=== PATIENT | male | born 1970 | race Caucasian/White ===

== ENCOUNTER 2022-12-20 16:09 | Outpatient (OUT) | payer OTHER, SELFPAY ==
[2022-12-20 16:46] LABS: Basophils Absolute Auto 0.1 10^3/uL (0.0-0.1); Basophils Percent Auto 0.6 % (0.2-2.0); Eosinophils Absolute Auto 0.1 10^3/uL (0.0-0.7); Eosinophils Percent Auto 0.6 % (0.9-7.0); Hematocrit 48.8 % (42.0-54.0); Hemoglobin 16.4 g/dL (14.0-18.0); Immature Granulocytes Abs Auto 0.03 10^3/uL (0.00-0.03); Immature Granulocytes Pct Auto 0.3 % (0.0-0.5); Lymphocytes Absolute Auto 2.4 10^3/uL (1.2-3.8); Lymphocytes Percent Auto 25.5 % (20.5-60.0); Mean Corpuscular HGB Conc 33.6 g/dL (29.9-35.2); Mean Corpuscular Hemoglobin 31.2 pg (25.9-34.0); Mean Platelet Volume 11.5 fL (9.5-13.5); Monocytes Absolute Auto 0.7 10^3/uL (0.3-0.8); Monocytes Percent Auto 7.7 % (1.7-12.0); Neutrophils Absolute Auto 6.2 10^3/uL (1.4-6.5); Neutrophils Percent Auto 65.3 % (43.0-75.0); Platelet Count 299 10^3/uL (150-450); Red Blood Count 5.25 10^6/uL (4.70-6.10); Red Cell Distribution Width 13.2 % (11.0-15.0); White Blood Count 9.6 10^3/uL (4.0-11.0)
[2022-12-20 16:47] LABS: Erythrocyte Sedimentation Rate 14 mm/hr (<=20)
[2022-12-20 18:26] LABS: Uric Acid 7.6 mg/dL (3.5-7.2)
[2022-12-20 18:28] LABS: C Reactive Protein <0.2 mg/dL (<=1.0)
== END 2022-12-20 16:10 | disposition home or self-care (01) ==
LOC: LAB 16:12
PROVIDERS: PCP Family Medicine; Visit Provider Family Medicine
DX: M70.52 Other bursitis of knee, left knee (principal)
CPT/HCPCS: 36415; 84550; 85025; 85652; 86140; 87040

== ENCOUNTER 2023-03-02 07:38 | Outpatient (OUT) | payer OTHER, SELFPAY ==
--- NOTE | 2023-03-02 07:45 | MR_ITS ---
The [address] [address] Patient Name: ABELINO PATEL MRN: [id number] date: 1970 Sex: M Assigned Patient Location: [facility] Current Patient Location: [facility] Accession/Order Number: [id number] Exam Date: 03/02/2023 08:00 Report Date: 03/02/2023 10:13 At the request of: MARIA L Mccloud APLING Procedure: MR knee RT wo con EXAM: MR knee RT wo con HISTORY: Internal Derangement Of Right Knee M23.91 right knee pain. Prior meniscal surgery. COMPARISON: None. TECHNIQUE: Multi planar, multisequence MR imaging of the right knee without contrast. Findings: Menisci: There is volume loss involving the posterior horn and a portion of the body of the lateral meniscus likely relating to prior meniscectomy. Otherwise, the menisci are intact. Cruciate ligaments: The anterior and posterior cruciate ligaments are intact. Collateral ligaments: The medial collateral ligament and lateral collateral complex are intact. Patellofemoral: The extensor mechanism is intact. Small joint effusion. Mild lateral patellar tilt. Small region of patchy bone marrow edema within the patella. No full-thickness patellofemoral compartments cartilage defects. Other bones and cartilage: No acute fracture or malalignment. No full-thickness femoral tibial compartment cartilage defect. Miscellaneous: No Mcdonald's cyst. There is focal edema within the superior lateral aspect of Hoffa's fat pad. MR/MR knee RT wo con IMPRESSION: 1. Patchy nonspecific mild bone marrow edema within the patella. 2. Focal edema within the superior lateral aspect of Hoffa's fat pad can be seen with patellar tendon lateral femoral condyle friction syndrome. 3. Prior lateral meniscectomy. Electronically authenticated by: SHIKHA EDGE Date: 03/02/2023 10:13
--- NOTE | 2023-03-02 07:57 | XR_ITS ---
[address] [address] Patient Name: ABELINO PATEL MRN: [id number] date: 1970 Sex: M Assigned Patient Location: [facility] Current Patient Location: [facility] Accession/Order Number: [id number] Exam Date: 03/02/2023 07:50 Report Date: 03/02/2023 08:08 At the request of: MARIA L ZAMBRANO Procedure: XR foreign body eye EXAMINATION: XR foreign body eye HISTORY: Foreign Body Eye COMPARISON: No relevant comparison available. FINDINGS: ORBITS: Negative for a metallic foreign body. OTHER: Negative. XR/XR foreign body eye IMPRESSION: No radiopaque foreign body in the orbits Electronically authenticated by: DEBORAH ORR Date: 03/02/2023 08:08
== END 2023-03-02 07:39 | disposition home or self-care (01) ==
LOC: RAD 07:38
PROVIDERS: PCP Family Medicine; Visit Provider Nurse Practitioner Family
DX: M23.91 Unspecified internal derangement of right knee (principal)
CPT/HCPCS: 70030; 73721

== ENCOUNTER 2024-05-10 10:07 | Outpatient (OUT) | payer OTHER, SELFPAY ==
--- NOTE | 2024-05-10 10:12 | US_ITS ---
The [address] [address] Patient Name: ABELINO PATEL MRN: [id number] date: 1970 Sex: M Assigned Patient Location: [facility] Current Patient Location: [facility] Accession/Order Number: [id number] Exam Date: 05/10/2024 10:20 Report Date: 05/10/2024 11:19 At the request of: RASHARD HICKMAN Procedure: US scrotum doppler Ultrasound scrotum/testicle HISTORY: Testicular Pain Right TECHNIQUE: Dedicated ultrasound of the scrotum and testes performed. FINDINGS: Comparison: None. Both testicles demonstrate normal echotexture and echogenicity. Right testicle measures 5.2 x 3.5 x 3.0 cm. The left testicle measures 5.4 x 3.0 x 2.8 cm. There is symmetrical color flow and Dopplerable arterial and venous waveforms in both testicles. There is no testicular mass. Right epididymal head measures 0.9 cm and is the body is diffusely thickened and hypervascular. The left epididymal head measures 1.1 cm. Left epididymis demonstrates normal color flow. Small bilateral hydroceles. There is no varicocele. US/US scrotum doppler IMPRESSION: 1. Acute right epididymitis. No associated right orchitis at this time. Recommend clinical follow-up to resolution. 2. Negative for testicular torsion or testicular mass. 3. Small bilateral hydroceles. 4. Negative for varicocele. Electronically authenticated by: GABRIELE FERRARA Date: 05/10/2024 11:19
== END 2024-05-10 10:08 | disposition home or self-care (01) ==
LOC: RAD 10:09
PROVIDERS: PCP Family Medicine; Visit Provider Family Medicine
DX: N50.811 Right testicular pain (principal); N45.1 Epididymitis; N43.2 Other hydrocele
CPT/HCPCS: 76870; 93976

== ENCOUNTER 2024-07-02 12:38 | Outpatient (OUT) | payer OTHER, SELFPAY ==
--- OUTSIDE RECORDS SUMMARY | 2024-07-02 12:46 | XMS_ITS | CCD ---
Author Organization [facility] Care Team Providers Care Division Order Technician Name Role Phone MARYLOU ., DR WETZEL Primary Care Unavailable JUVENALY ., DR WETZEL Consulting Unavailable HOY ., DR WETZEL Attending Unavailable HOY ., DR WETZEL Admitting Unavailable ROSA, DR PASCUAL Friedman Consulting Unavailable HOY ., DR WETZEL Admitting Unavailable JUVENALY ., DR WETZEL Primary Care Unavailable HOY ., DR WETZEL Consulting Unavailable HOY ., DR WETZEL Attending Unavailable BRAVE, DR DEBORAH Ware Consulting Unavailable Marciano GLEZ Attending Unavailable Isak Hickman Referring Unavailable Allergies Allergy Classification Reported Allergen(s) Allergy Type Date of Onset Reaction(s) Facility (1 source) No Known Medication Allergies; Translations: [No Known Medication Allergies] Propensity to adverse reactions (disorder) [facility] Repository Problems Problem Classification Problem Date Documented Da te Episodic/Chronic Other lower respiratory disease (4 sources) Pleurodynia; Translations: [PLEURODYNIA] Onset: 08-26-2022 Episodic Results Test Name Value Interpretation Reference Range Facil ity CT CHEST WO CONon 08-26-2022 CT CHEST WO CON EXAMINATION: CT CHEST WO CON HISTORY: Rib pain ; lateral rib pain bilaterally; no known injury COMPARISON: No relevant comparison available. TECHNIQUE: Axial, Coronal, and Sagittal images were created without the administration of IV contrast material. Dose reduction techniques were achieved by using automated exposure control and/or adjustment of mA and/or kV according to patient size and/or use of iterative reconstruction technique. FINDINGS: LUNGS: A few areas of thin pleural scarring. No suspicious nodules, infiltrates, or significant chronic interstitial changes. PLEURA: No mass, effusion, or pneumothorax. VASCULATURE: No abnormality. LAURIE: No mass or adenopathy. MEDIASTINUM: No mass or adenopathy. CARDIAC: No enlargement or pericardial thickening. AORTA: No aneurysm or dissection. CHEST WALL: No mass or axillary adenopathy. BONES: No bone lesion or fracture. LIMITED ABDOMEN: No suspicious findings. Limited images of the upper abdomen. OTHER: Negative. IMPRESSION: 1. No abnormal or suspicious findings to account for patient's symptoms. Electronically authenticated by: PASCUAL LEE Date: 2022-08-26 13:48 Normal [facility] XR RIBS LT PA Skyler 3 XR RIBS LT PA CH EXAMINATION: XR RIBS LT PA CH HISTORY: Pleuritic pain COMPARISON: No relevant comparison available. FINDINGS: LUNGS: No significant pulmonary parenchymal abnormalities. PLEURA: No pneumothorax, effusion, or pleural thickening. MEDIASTINUM: No visible mass or adenopathy. CARDIAC: No cardiomegaly or cardiac silhouette abnormality. RIBS: No acute rib fracture OTHER: Negative. IMPRESSION: Clear lungs No acute fracture Electronically authenticated by: DEBORAH ORR Date: 2022-07-20 07:43 Normal [facility] A1C with Estimated Average G luon 02-28-2021 Glucose [Mass/Vol] 108 mg/dL Normal [facility] Comment on above: Result Comment: PERF ORMED BY: [place] [address] PATHOLOGIST DEPUTY PROGRAM MANAGER OANH TOLBERT M.D. Performed By: #### A 1C WTH eA, LIPID, URIC, CMP, TEST, PSAS, CBC #### [address] #### INSULIN #### [facility] , HbA1c (Bld) [Mass fraction] 5.4 % Normal 4.3-5.6 [facility] Comment on above: Result Comment: Incr eased risk for diabetes: 5.7 - 6.4 diabetes: >6.4 glycemic control for adults with diabetes: <7.0 Performed By: #### A 1C WTH eA, LIPID, URIC, CMP, TEST, PSAS, CBC #### [facility] [address] [place] [address] #### INSULIN #### [facility] , Complete Blood Count Auto Di ffon 02-28-2021 Basophils (Bld) [#/Vol] 0.1 10*3/uL Normal 0.0-0.2 [facility] Comment on above: Result Comment: PERF ORMED BY: [place] [address] PATHOLOGIST DEPUTY PROGRAM MANAGER OANH TOLBERT M.D. Performed By: #### A 1C WTH eA, LIPID, URIC, CMP, TEST, PSAS, CBC #### [address] #### INSULIN #### [facility] , Basophils/100 WBC (Bld) 0.9 % Normal . [facility] Comment on above: Performed By: #### A 1C WTH eA, LIPID, URIC, CMP, TEST, PSAS, CBC #### [address] #### INSULIN #### [facility] , Eosinophils (Bld) [#/Vol] 0.1 10*3/uL Normal 0.0-0.45 [facility] Comment on above: Performed By: #### A 1C WTH eA, LIPID, URIC, CMP, TEST, PSAS, CBC #### [address] #### INSULIN #### [facility] , Eosinophils/100 WBC (Bld) 2.0 % Normal . [facility] Comment on above: Performed By: #### A 1C WTH eA, LIPID, URIC, CMP, TEST, PSAS, CBC #### [place] [address] [place] #### INSULIN #### [facility] , Erythrocyte distribution width (RBC) [Ratio] 13.5 % Normal 12.0-14.8 [facility] Comment on above: Performed By: #### A 1C WTH eA, LIPID, URIC, CMP, TEST, PSAS, CBC #### [address] #### INSULIN #### [facility] , Hematocrit (Bld) [Volume fraction] 44.8 % Normal 38.8-50.0 [facility] Comment on above: Performed By: #### A 1C WTH eA, LIPID, URIC, CMP, TEST, PSAS, CBC #### [facility] [address] [place] [address] #### INSULIN #### [facility] , Hemoglobin (Bld) [Mass/Vol] 15.3 g/dL Normal 13.0-17.0 [facility] Comment on above: Performed By: #### A 1C WTH eA, LIPID, URIC, CMP, TEST, PSAS, CBC #### [facility] [address] [place] [address] #### INSULIN #### [facility] , Lymphocytes (Bld) [#/Vol] 1.6 10*3/uL Normal 1.00-4.8 [facility] Comment on above: Performed By: #### A 1C WTH eA, LIPID, URIC, CMP, TEST, PSAS, CBC #### [address] #### INSULIN #### [facility] , Lymphocytes/100 WBC (Bld) 27.5 % Normal . [facility] Comment on above: Performed By: #### A 1C WTH eA, LIPID, URIC, CMP, TEST, PSAS, CBC #### [facility] [address] [place] [address] [place] #### INSULIN #### [facility] , MCH (RBC) [Entitic mass] 31.5 pg Normal 27.5-35.2 [facility] Comment on above: Performed By: #### A 1C WTH eA, LIPID, URIC, CMP, TEST, PSAS, CBC #### [facility] [address] [place] [address] [place] #### INSULIN #### [facility] , MCV (RBC) [Entitic vol] 92.1 fL Normal 83.5-101 [facility] Comment on above: Performed By: #### A 1C WTH eA, LIPID, URIC, CMP, TEST, PSAS, CBC #### [place] [address] [place] #### INSULIN #### [facility] , Mean Corpuscular HGB Conc 34.2 g/dL Normal 32.5-35.6 [facility] Comment on above: Performed By: #### A 1C WTH eA, LIPID, URIC, CMP, TEST, PSAS, CBC #### [place] [address] [place] #### INSULIN #### [facility] , Monocytes (Bld) [#/Vol] 0.5 10*3/uL Normal 0.0-0.8 [facility] Comment on above: Performed By: #### A 1C WTH eA, LIPID, URIC, CMP, TEST, PSAS, CBC #### [place] [address] [place] #### INSULIN #### [facility] , Monocytes/100 WBC (Bld) 8.0 % Normal . [facility] Comment on above: Performed By: #### A 1C WTH eA, LIPID, URIC, CMP, TEST, PSAS, CBC #### [place] [address] [place] #### INSULIN #### [facility] , Neutrophils (Bld) [#/Vol] 3.7 10*3/uL Normal 1.8-7.7 [facility] Comment on above: Performed By: #### A 1C WTH eA, LIPID, URIC, CMP, TEST, PSAS, CBC #### [facility] [address] [place] [address] [place] #### INSULIN #### [facility] , Neutrophils/100 WBC (Bld) 61.6 % Normal . [facility] Comment on above: Performed By: #### A 1C WTH eA, LIPID, URIC, CMP, TEST, PSAS, CBC #### [address] [place] [address] [place] #### INSULIN #### [facility] , Nucleated RBC/100 WBC (Bld) [Ratio] 0.0 % Normal 0-0.5 [facility] Comment on above: Performed By: #### A 1C WTH eA, LIPID, URIC, CMP, TEST, PSAS, CBC #### [facility] [address] [place] [address] [place] #### INSULIN #### [facility] , Platelet mean volume (Bld) [Entitic vol] 9.6 fL Normal 6.6-10.1 [facility] Comment on above: Performed By: #### A 1C WTH eA, LIPID, URIC, CMP, TEST, PSAS, CBC #### [address] #### INSULIN #### [facility] , Platelets (Bld) [#/Vol] 242 10*3/uL Normal 150-450 [facility] Comment on above: Performed By: #### A 1C WTH eA, LIPID, URIC, CMP, TEST, PSAS, CBC #### [place] [address] [place] #### INSULIN #### [facility] , RBC (Bld) [#/Vol] 4.87 10*6/uL Normal 3.90-5.60 [facility] Comment on above: Performed By: #### A 1C WTH eA, LIPID, URIC, CMP, TEST, PSAS, CBC #### [place] [address] [place] #### INSULIN #### [facility] , WBC (Bld) [#/Vol] 6.0 10*3/uL Normal 4.5-11.0 [facility] Comment on above: Performed By: #### A 1C WTH eA, LIPID, URIC, CMP, TEST, PSAS, CBC #### [place] [address] [place] #### INSULIN #### [facility] , Comprehensive Metabolic Pane france 02-28-2021 Albumin [Mass/Vol] 4.4 g/dL Normal 3.2-5.5 [facility] Comment on above: Performed By: #### A 1C WTH eA, LIPID, URIC, CMP, TEST, PSAS, CBC #### [facility] [address] [place] [address] [place] #### INSULIN #### [facility] , Albumin/Globulin [Mass ratio] 1.7 {ratio} Normal [facility] Comment on above: Performed By: #### A 1C WTH eA, LIPID, URIC, CMP, TEST, PSAS, CBC #### [facility] [address] [place] [address] #### INSULIN #### [facility] , ALP [Catalytic activity/Vol] 70 U/L Normal 32-92 [facility] Comment on above: Performed By: #### A 1C WTH eA, LIPID, URIC, CMP, TEST, PSAS, CBC #### [facility] [address] [place] [address] [place] #### INSULIN #### [facility] , ALT [Catalytic activity/Vol] 36 U/L Normal 10-60 [facility] Comment on above: Performed By: #### A 1C WTH eA, LIPID, URIC, CMP, TEST, PSAS, CBC #### [facility] [address] [place] [address] [place] #### INSULIN #### [facility] , AST [Catalytic activity/Vol] 26 U/L Normal 10-42 [facility] Comment on above: Performed By: #### A 1C WTH eA, LIPID, URIC, CMP, TEST, PSAS, CBC #### [facility] [address] [place] [address] [place] #### INSULIN #### [facility] , Bilirubin [Mass/Vol] 1.0 mg/dL Normal 0.3-1.2 [facility] Comment on above: Performed By: #### A 1C WTH eA, LIPID, URIC, CMP, TEST, PSAS, CBC #### [facility] [address] [place] [address] [place] #### INSULIN #### [facility] , Calcium [Mass/Vol] 9.6 mg/dL Normal 8.2-10.2 [facility] Comment on above: Performed By: #### A 1C WTH eA, LIPID, URIC, CMP, TEST, PSAS, CBC #### [facility] [address] [place] [address] [place] #### INSULIN #### [facility] , Chloride [Moles/Vol] 104 mmol/L Normal 95-114 [facility] Comment on above: Performed By: #### A 1C WTH eA, LIPID, URIC, CMP, TEST, PSAS, CBC #### [facility] [address] [place] [address] [place] #### INSULIN #### [facility] , CO2 [Moles/Vol] 26.3 mmol/L Normal 22.0-30.0 [facility] Comment on above: Performed By: #### A 1C WTH eA, LIPID, URIC, CMP, TEST, PSAS, CBC #### [facility] [address] [place] [address] [place] #### INSULIN #### [facility] , Creatinine [Mass/Vol] 1.29 mg/dL High 0.64-1.27 [facility] Comment on above: Performed By: #### A 1C WTH eA, LIPID, URIC, CMP, TEST, PSAS, CBC #### [facility] [address] [place] [address] [place] #### INSULIN #### [facility] , Estimated GFR ( Roberta > 60 Normal [facility] Comment on above: Result Comment: GFR estimated reference range: According to KDOQI guidelines, <60 ml/min/1.73m2 is sufficient to diagnose a patient with chronic kidney disease. Performed By: #### A 1C WTH eA, LIPID, URIC, CMP, TEST, PSAS, CBC #### [place] [address] [place] #### INSULIN #### [facility] , Estimated GFR (Non- Am 59 Normal [facility] Comment on above: Performed By: #### A 1C WTH eA, LIPID, URIC, CMP, TEST, PSAS, CBC #### [place] [address] [place] #### INSULIN #### [facility] , Globulin (S) [Mass/Vol] 2.6 g/dL Normal [facility] Comment on above: Performed By: #### A 1C WTH eA, LIPID, URIC, CMP, TEST, PSAS, CBC #### [place] [address] [place] #### INSULIN #### [facility] , Glucose [Mass/Vol] 100 mg/dL Normal 70-100 [facility] Comment on above: Result Comment: [facility] Glucose Reference Range is dependent on time and content of last meal. Glucose of more than 200 mg/dL in a nonstressed, ambulatory subject supports the diagnosis of Diabetes Mellitus. ADA recommended reference range Performed By: #### A 1C WTH eA, LIPID, URIC, CMP, TEST, PSAS, CBC #### [place] [address] [place] #### INSULIN #### [facility] , Potassium [Moles/Vol] 4.5 mmol/L Normal 3.5-5.1 [facility] Comment on above: Performed By: #### A 1C WTH eA, LIPID, URIC, CMP, TEST, PSAS, CBC #### [place] [address] [place] #### INSULIN #### [facility] , Protein [Mass/Vol] 7.0 g/dL Normal 6.1-7.9 [facility] Comment on above: Performed By: #### A 1C WTH eA, LIPID, URIC, CMP, TEST, PSAS, CBC #### [facility] [address] [place] [address] #### INSULIN #### [facility] , Sodium [Moles/Vol] 138 mmol/L Normal 136-146 [facility] Comment on above: Performed By: #### A 1C WTH eA, LIPID, URIC, CMP, TEST, PSAS, CBC #### [facility] [address] [place] [address] #### INSULIN #### [facility] , Urea nitrogen [Mass/Vol] 9 mg/dL Normal 9-23 [facility] Comment on above: Performed By: #### A 1C WTH eA, LIPID, URIC, CMP, TEST, PSAS, CBC #### [facility] [address] [place] [address] #### INSULIN #### [facility] , Insulinon 02-28-2021 Insulin 14.2 u[iU]/mL Normal 2.6-24.9 [facility] Comment on above: Result Comment: Perf ormed at: - [facility] [address] [id number] Compressor Mechanic: Tung Friedman PhD, Phone: [phone] PERFORMED BY: [place] [address] PATHOLOGIST DEPUTY PROGRAM MANAGER OANH TOLBERT M.D. Performed By: #### A 1C WTH eA, LIPID, URIC, CMP, TEST, PSAS, CBC #### [facility] [address] [place] [address] [place] #### INSULIN #### [facility] , Lipid Panelon 02-28-2021 Cholesterol [Mass/Vol] 195 mg/dL Normal 140-200 [facility] Comment on above: Result Comment: Chol less than 200 mg/dl low risk Chol 201-239 mg/dl borderline risk Chol 240 mg/dl and greater high risk Performed By: #### A 1C WTH eA, LIPID, URIC, CMP, TEST, PSAS, CBC #### [facility] [address] [place] [address] #### INSULIN #### [facility] , Cholesterol in HDL [Mass/Vol] 38 mg/dL Normal 29-71 [facility] Comment on above: Result Comment: HDL CHOL ATP-III CLASSIFICATION Cardiovascular Risk HDL > or equal to 60 mg/dL LOW HDL < 40 mg/dL HIGH Performed By: #### A 1C WTH eA, LIPID, URIC, CMP, TEST, PSAS, CBC #### [facility] [address] [place] [address] #### INSULIN #### [facility] , Cholesterol.total/Ch olesterol in HDL [Mass ratio] 5.1 {ratio} Normal <5.0 [facility] Comment on above: Result Comment: PERF ORMED BY: [place] [address] PATHOLOGIST DEPUTY PROGRAM MANAGER OANH TOLBERT M.D. Performed By: #### A 1C WTH eA, LIPID, URIC, CMP, TEST, PSAS, CBC #### [facility] [address] [place] [address] #### INSULIN #### [facility] , LDL Cholesterol,Calculat ed 138 mg/dL High 0-100 [facility] Comment on above: Result Comment: LDL ATP III CLASSIFICATION LDL less than 100 mg/dL Optimal LDL 100-129 mg/dL Near or above optimal LDL 130-159 mg/dL Borderline high LDL 160-189 mg/dL High LDL greater than 189 mg/dL Very high Performed By: #### A 1C WTH eA, LIPID, URIC, CMP, TEST, PSAS, CBC #### [address] #### INSULIN #### [facility] , Triglyceride w/Reflex 96 mg/dL Normal 35-149 [facility] Comment on above: Result Comment: TRIG ATP III CLASSIFICATION TRIG less than 150 mg/dL Normal TRIG 150-199 mg/dL Borderline high TRIG 200-500 mg/dL High TRIG greater than 500 mg/dL Very high Standard traceable to the Center for Disease Conrtrol and Prevention (CDC) test method. Performed By: #### A 1C WTH eA, LIPID, URIC, CMP, TEST, PSAS, CBC #### [place] [address] [place] #### INSULIN #### [facility] , VLDL CHOLESTEROL 19 mg/dL Normal [facility] Comment on above: Performed By: #### A 1C WTH eA, LIPID, URIC, CMP, TEST, PSAS, CBC #### [facility] [address] [place] [address] [place] #### INSULIN #### [facility] , PSA Screen (Yearly Only)on 0 02-28-2021 PSA Screen (Yearly Only) 1.120 ng/mL Normal 0.000-4.000 [facility] Comment on above: Order Comment: Is pa tient <50 yrs? Medicare does not pay <50.: N What is the date of the last PSA Screen?: U OR...The date Patient is eligible for PSA Screen?: U Is Medicare the insurance?: U Did you verify eligibility (Dx Time) check TestViewGp: YES TO ALL Result Comment: PERF ORMED BY: [place] [address] PATHOLOGIST DEPUTY PROGRAM MANAGER OANH TOLBERT M.D. Performed By: #### A 1C WTH eA, LIPID, URIC, CMP, TEST, PSAS, CBC #### [place] [address] [place] #### INSULIN #### [facility] , Testosteroneon 02-28-2021 Testosterone 4.60 ng/mL Normal 1.75-7.81 [facility] Comment on above: Result Comment: PERF ORMED BY: [place] [address] PATHOLOGIST DEPUTY PROGRAM MANAGER OANH TOLBERT M.D. Performed By: #### A 1C WTH eA, LIPID, URIC, CMP, TEST, PSAS, CBC #### [facility] [address] [place] [address] [place] #### INSULIN #### [facility] , Uric Acidon 02-28-2021 Urate [Mass/Vol] 8.7 mg/dL High 2.6-7.2 [facility] Comment on above: Performed By: #### A 1C WTH eA, LIPID, URIC, CMP, TEST, PSAS, CBC #### [facility] [address] [place] [address] [place] #### INSULIN #### [facility] , Encounters Encounter Date Encounter Type Care Provider Facility Start: 07-02-2024 ambulatory Marciano Yusuf ty:[facility] Start: 06-21-2024 ambulatory Marciano GLEZ Facility :[facility] Start: 08-26-2022 End: 08-27-[address] ISAK HICKMAN . Facility: Start: 07-19-2022 End: 07-20-[address] ISAK HICKMAN . Facility:[facility] Payers Date Payer Category Payer Unknown [id number] 2.16.84 [id number] 1970 Unknown [id number] 2.16.84 [id number] 1970 Unknown [id number] [id number] [id number] 1959 Unknown [id number] Summary Purpose Family History No Family History Records FoundNo Family History Records FoundNo Family History Records Found Advance Directives No Advanced Directives Records FoundNo Advanced Directives Records FoundNo Advanced Directives Records Found Additional Source Comments (unrecognized sect ion and content) No Status Records FoundNo Status Records FoundNo Status Records Found INFORMATION SOURCE (unrecogn ized section and content) DATE CREATED AUTHOR 06/30/2021 [facility] DATE CREATED AUTHOR AUTHOR'S ORGANIZ ATION 11/12/2022 [facility] DATE CREATED AUTHOR AUTHOR'S ORGANIZ ATION 06/29/2024 [facility] FOR RECORDS PERTAINING TO PATIENTS WHO ARE OR HAVE BEEN ENROLLED IN A CHEMICAL DEPENDENCY/SUBSTANCEABUSE PROGRAM, SOME INFORMATION MAY BE OMITTED. This clinical summary was aggregated from multiple sources. Caution should be exercised in using it in the provision of clinical care. This summary normalizes information from multiple sources, and as a consequence, information in this document may materially change the coding, format and clinical context of patient data. In addition, data may be omitted in some cases. CLINICAL DECISIONS SHOULD BE BASED ON THE PRIMARY CLINICAL RECORDS. [employer] [facility]. provides no warranty or guarantee of the accuracy or completeness of information in this document.
[2024-07-02 14:17] LABS: Prostate Specific Antigen Dx 2.33 ng/mL (<=4.00)
== END 2024-07-02 12:39 | disposition home or self-care (01) ==
LOC: LAB 12:39
PROVIDERS: PCP Family Medicine; Visit Provider Urology
DX: Z12.5 Encounter for screening for malignant neoplasm of prostate (principal)
CPT/HCPCS: 36415; 84153

== ENCOUNTER 2024-10-10 11:00 | Outpatient (OUT) | payer OTHER, SELFPAY ==
[2024-10-10 11:25] LABS: Basophils Absolute Auto 0.1 10^3/uL (0.0-0.1); Basophils Percent Auto 0.8 % (0.2-2.0); Eosinophils Absolute Auto 0.1 10^3/uL (0.0-0.7); Eosinophils Percent Auto 1.1 % (0.9-7.0); Hematocrit 44.2 % (42.0-54.0); Hemoglobin 14.8 g/dL (14.0-18.0); Immature Granulocytes Abs Auto 0.01 10^3/uL (0.00-0.03); Immature Granulocytes Pct Auto 0.2 % (0.0-0.5); Lymphocytes Absolute Auto 2.1 10^3/uL (1.2-3.8); Lymphocytes Percent Auto 34.3 % (20.5-60.0); Mean Corpuscular HGB Conc 33.5 g/dL (29.9-35.2); Mean Corpuscular Volume 92.7 fL (80.0-94.0); Mean Platelet Volume 11.6 fL (9.5-13.5); Monocytes Absolute Auto 0.5 10^3/uL (0.3-0.8); Monocytes Percent Auto 7.7 % (1.7-12.0); Neutrophils Absolute Auto 3.5 10^3/uL (1.4-6.5); Neutrophils Percent Auto 55.9 % (43.0-75.0); Platelet Count 242 10^3/uL (150-450); Red Blood Count 4.77 10^6/uL (4.70-6.10); Red Cell Distribution Width 12.8 % (11.0-15.0); White Blood Count 6.2 10^3/uL (4.0-11.0)
[2024-10-10 11:56] LABS: Estimated Average Glucose 114 mg/dL; Glycohemoglobin A1C 5.6 % (4.5-6.2)
[2024-10-10 12:12] LABS: Alanine Aminotransferase 28 U/L (16-63); Albumin Globulin Ratio 1.5; Albumin Level 4.3 g/dL (3.4-5.0); Alkaline Phosphatase 69 U/L (46-116); Anion Gap 7.9; Aspartate Amino Transferase 17 U/L (15-37); BUN Creatinine Ratio 6.9; Bilirubin Total 0.8 mg/dL (0.2-1.0); Calcium 9.2 mg/dL (8.5-10.1); Carbon Dioxide 30.3 mmol/L (21.0-32.0); Chloride 106 mmol/L (98-107); Chol HDL Ratio 3.4; Cholesterol 180 mg/dL (<=200); Estimated GFR (African America >60 (>=60 mL/min/1.73m^2); Estimated GFR (Non-African Ame 58 (>=60 mL/min/1.73m^2); Free T3 3.25 pg/mL (2.18-3.98); Globulin 2.9 g/dL; Glucose 94 mg/dL (74-106); HDL Cholesterol 53 mg/dL (40-60); LDL Cholesterol Calculated 109.8 mg/dL; Potassium 4.2 mmol/L (3.5-5.1); Sodium 140 mmol/L (136-145); Thyroid Stimulating Hormone 1.401 uIU/mL (0.358-3.740); Total Protein 7.2 g/dL (6.4-8.2); Triglycerides 86 mg/dL (<=150); VLDL CHOLESTEROL 17.2 mg/dL
[2024-10-11 04:09] LABS: PSA, Free 0.42 ng/mL; Prostate Specific Ag 2.8 ng/mL (0.0-4.0)
[2024-10-13 14:09] LABS: Free Testosterone(Direct) 8.5 pg/mL (7.2-24.0); Testosterone 744 ng/dL (264-916)
== END 2024-10-10 11:01 | disposition home or self-care (01) ==
LOC: LAB 11:02
PROVIDERS: PCP Family Medicine; Visit Provider Family Medicine
DX: N52.9 Male erectile dysfunction, unspecified (principal); E78.5 Hyperlipidemia, unspecified; R73.09 Other abnormal glucose; E03.9 Hypothyroidism, unspecified; I10 Essential (primary) hypertension; R53.83 Other fatigue; Z12.5 Encounter for screening for malignant neoplasm of prostate
CPT/HCPCS: 36415; 80053; 80061; 83036; 84153; 84154; 84402; 84403; 84436; 84443; 84481; 85025

== ENCOUNTER 2024-10-13 10:21 | Outpatient (OUT) | payer OTHER, SELFPAY ==
--- OUTSIDE RECORDS SUMMARY | 2024-10-13 10:24 | XMS_ITS | CCD ---
Author Organization [facility] Care Team Providers Care Shotblast Equipment Operator Name Role Phone MARYLOU Sanders, DR WETZEL Primary Care Unavailable MARYLOU ., DR WETZEL Consulting Unavailable MARYLOU ., DR WETZEL Attending Unavailable MARYLOU ., DR WETZEL Admitting Unavailable ROSA, DR PASCUAL Friedman Consulting Unavailable MARYLOU ., DR WETZEL Admitting Unavailable MARYLOU ., DR WETZEL Primary Care Unavailable JUVENALY ., DR WETZEL Consulting Unavailable MARYLOU ., DR WETZEL Attending Unavailable DOMINGA, DR DEBORAH Ware Consulting Unavailable Rashard Hair Primary Care Physician JOANNE BARTON Attending Unavailable JOANNE BARTON Attending Unavailable Marciano LO Attending Unavailable Rashard Hair Referring Unavailable Allergies Allergy Classification Reported Allergen(s) Allergy Type Date of Onset Reaction(s) Facility (1 source) No Known Medication Allergies; Translations: [No Known Medication Allergies] Propensity to adverse reactions (disorder) [facility] Repository Medications Current Medications Medication Drug Class(es) Dates Sig (Normalized) Sig (Original) Diclofenac 75mg Tab-DR (1 source) Start: 07-17-2021 take 1 tablet by mouth twice daily Diclofenac 75mg Tab-DR = 1 tab(s), Oral, BID, Refills(s) 0 Start Date: 07/17/21 Status: Ordered tiZANidine 4 mg oral tablet (1 source) Central alpha-2 Adrenergic Agonist Start: 07-17-2021 take 1 tablet by mouth twice daily as needed for muscle spasms tiZANidine 4 mg Tab 4 mg = 1 tab(s), Oral, BID, PRN Spasm, Refills(s) 0 Start Date: 07/17/21 Status: Ordered Problems Problem Classification Problem Date Documented Date Episodic/Chronic Abdominal pain (1 source) Left lower quadrant pain 07-25-2021 Episodic Allergic reactions (1 source) Vesicular eczema 07-17-2021 Episodic Esophageal disorders (1 source) Gastroesophageal reflux disease 07-17-2021 Chronic Inflammatory conditions of male genital organs (2 sources) Epididymitis; Translations: [Epididymitis] Onset: 07-02-2024 Episodic Other lower respiratory disease (4 sources) Pleurodynia; Translations: [PLEURODYNIA] Onset: 08-26-2022 Episodic Other male genital disorders (1 source) Hydrocele of testis; Translations: [Hydrocele, unspecified] Onset: 07-02-2024 Episodic Other male genital disorders (1 source) Disorder of male genital organ 07-02-2024 Episodic Other nutritional; endocrine; and metabolic disorders (1 source) Body mass index 30+ - obesity 07-21-2021 Chronic Other screening for suspected conditions (not mental disorders or infectious disease) (1 source) Encounter for screening for malignant neoplasm of prostate; Translations: [Screening for malignant neoplasm done] Onset: 07-02-2024 Episodic Residual codes; unclassified (1 source) Family history of cancer of colon 07-25-2021 Episodic Residual codes; unclassified (1 source) Tobacco user 07-21-2021 Episodic Spondylosis; intervertebral disc disorders; other back problems (1 source) Cervical disc disorder 07-17-2021 Chronic Unclassified (1 source) Patient encounter status 07-02-2024 Results Test Name Value Interpretation Reference Range [facility] Urology Office/Clinic Noteon 07-02-2024 Urology Office/Clinic Note Urology Office/Clinic Note Chief Complaint referal for testicular pain HPI Staff 54yr old male pt referred by Dr. Hair for right testicular pain. Pt had intermittent hot flashes in genital area, then he started experiencing right groin/testicle pain that moves upward during the day. He was started on Cipro 500mg q12hrs for 10 days. He did finish these with no problems US of scrotum completed 05/10/24 showed acute right epididymitis and small bilateral hydroceles. His Testicular pain is gone, just a warm sensation- Started a couple months ago Intermittent it happens a couple minutes burning lasts then it goes away History of Present Illness Tests reviewed: reviewed UA, referral records, scrotal US I have reviewed the previous health record information and history for this patient from external providers. I have reviewed and verified the staff HPI to be accurate for this encounter. Review of Systems PHQ Score Initial Depression Screen Score: 0 SCORE ROS - Provider Constitutional: denies weight loss, denies hot flashes. Eyes: denies eye problems. Gastrointestinal: denies nausea, denies vomiting. Cardiovascular: denies chest pain or angina. Integumentary: no dryness Musculoskeletal: denies musculoskeletal symptoms. ENMT: denies otolaryngeal symptoms. Respiratory: no shortness of breath. Heme/Lymph: denies easy bleeding tendency, denies easy bruising tendency. Psychiatric: no confusion, no anxiety. Genitourinary: See HPI. Physical Exam Vitals & Measurements T: 36.5 ???C(Oral) HR: 74(Peripheral) BP: 128/86 HT: 68 in HT: 173 cm WT: 104 kg WT: 229.28 lb BMI: 34.75 General Appearance: alert, no distress, well nourished, well developed male. Genitourinary: normal scrotum, normal testes, normal urethra, normal epididymis, normal vas deferens/spermatic cord. Assessment/Plan Abelino is a 54 yo male new pt referred by Dr. Hair for testicular pain. 1. Epididymitis (N45.1: Epididymitis) Scrotal US 05/10/24 [facility] - Right epididymal head measures 0.9cm and the body is diffusely thickened and hypervascular. Small bilateral hydroceles. No varicocele. PCP tx'd pt w/ Cipro 500mg bid x10 days in early May. Pt had recurrent pain so was given Azithromycin 500mg qd x3 days later that month. Completed both abx courses wo issues. Pain has since subsided. UA today negative for blood and infection. Reports experiencing a warm sensation in right testicle intermittently. Discussed possible etiologies. Advised pt infection can be related to incomplete emptying. Shares he voids every few hours during the day. Feels he empties. Good stream. Recommended timed voids q2-3hr during waking hours whether the urge to void is present or not. Also recommended increased water intake. -Timed voids -Increase water intake 2. Hydrocele (N43.3: Hydrocele, unspecified) Bilateral and small. Found on exam today. 3. Screening PSA (prostate specific antigen) (Z12.5: Encounter for screening for malignant neoplasm of prostate) PSA 02/28/21 - 1.12 Discussed PSA level and importance of monitoring. Has not had a more recent level. Recommended pt to update this. Pt agrees with plan. -Pt to complete PSA level. Will call pt with results. If wnl, pt to f/u prn. Follow-up With When Contact Information Marciano LO MD, URL Only if needed [facility] [address], [place] [address]- [phone] Additional Instructions: Patient Education Prostate Cancer Screening I, Stephanie Hayes, personally scribed for Dr. Lo on 07/02/2024 12:34:58. . Documentation recorded by the [email or web address], accurately reflects the services(s) I performed and decisions made by me. Authenticated by Dr. Lo on 07/02/2024 12:36:15. Problem List/Past Medical History Ongoing Abdominal pain, LLQ BMI 36.0-36.9,adult Cervical disc disease Dyshidrotic eczema Epididymitis Family history of colon cancer GERD (gastroesophageal reflux disease) Hydrocele Screening PSA (prostate specific antigen) Historical Tobacco user Procedure/Surgical History Partial meniscectomy of knee (2018), Colonoscopy (07/07/2016), Meniscectomy (2010), History of hernia repair, Vasectomy. Medications Diclofenac 75mg Tab-DR, 1 tab(s), Oral, BID tiZANidine 4 mg Tab, 4 mg= 1 tab(s), Oral, BID, PRN Allergies No Known Allergies No Known Medication Allergies Social History Alcohol Current. Beer. 1-2 times per week., 06/27/2024 Substance Abuse - Denies Substance Abuse, 07/21/2021 Never., 06/27/2024 Tobacco Former smoker, quit more than 30 days ago Tobacco Use:., 07/02/2024 Family History COPD: Father. Dementia: Mother. Metastatic cancer: Sister. Immunizations Vaccine Date Status Comments influenza virus vaccine, inactivated - Not Given Patient Refuses Lab Results Ambulatory Point of Care Results Bilirubin Urine Dipstick: Negative (07/02/24 11:35:00) Blood Urine Dipstick: Negative (more content not included)... Normal [facility] Comment on above: Result Comment: Elec tronically Signed By: Marciano LO MD\.br\Date and Time Signed: 07/02/24 12:36 EST\.br\Electronically Co-Signed By: Stephanie Hayes\.leah\Date and Time Co-Signed: 07/02/24 12:[address] CHEST WO CONon 08-26-2022 CT CHEST WO CON EXAMINATION: CT CHES T WO CON HISTORY: Rib pain ; lateral [...] by: PASCUAL LEE Date: 2022-08-26 13:[address] [facility] XR RIBS LT PA Skyler 3 [...] by: DEBORAH ORR Date: 2022-07-20 07:[address] [facility] A1C with Estimated Average G luon 02-28-2021 Glucose [Mass/Vol] 108 mg/dL Normal [facility] Comment on above: Result Comment: PERF ORMED BY: [facility] [address] [place] [address] PATHOLOGIST PLACEMENT COORDINATOR OANH TOLBERT M.D. Performed By: #### A 1C WTH eA, LIPID, URIC, CMP, TEST, PSAS, CBC #### [facility] [address] [place] [address] #### INSULIN #### [facility] , HbA1c (Bld) [Mass fraction] 5.4 % Normal 4.3-5.6 [facility] Comment on above: Result Comment: Incr eased risk for diabetes: 5.7 - 6.4 diabetes: >6.4 glycemic control for adults with diabetes: <7.0 Performed By: #### A 1C WTH eA, LIPID, URIC, CMP, TEST, PSAS, CBC #### [address] #### INSULIN #### [facility] , Complete Blood Count Auto Di ffon 02-28-2021 Basophils (Bld) [#/Vol] 0.1 10*3/uL Normal 0.0-0.2 [facility] Comment on above: Result Comment: PERF ORMED BY: [place] [address] PATHOLOGIST PLACEMENT COORDINATOR OANH TOLBERT M.D. Performed By: #### A 1C WTH eA, LIPID, URIC, CMP, TEST, PSAS, CBC #### [address] #### INSULIN #### [facility] , Basophils/100 WBC (Bld) 0.9 % Normal . [facility] Comment on above: Performed By: #### A 1C WTH eA, LIPID, URIC, CMP, TEST, PSAS, CBC #### [facility] [address] [place] [address] [place] #### INSULIN #### [facility] , Eosinophils (Bld) [#/Vol] 0.1 10*3/uL Normal 0.0-0.45 [facility] Comment on above: Performed By: #### A 1C WTH eA, LIPID, URIC, CMP, TEST, PSAS, CBC #### [place] [address] [place] #### INSULIN #### [facility] , Eosinophils/100 WBC (Bld) 2.0 % Normal . [facility] Comment on above: Performed By: #### A 1C WTH eA, LIPID, URIC, CMP, TEST, PSAS, CBC #### [facility] [address] [place] [address] [place] #### INSULIN #### [facility] , Erythrocyte distribution width (RBC) [Ratio] 13.5 % Normal 12.0-14.8 [facility] Comment on above: Performed By: #### A 1C WTH eA, LIPID, URIC, CMP, TEST, PSAS, CBC #### [address] #### INSULIN #### [facility] , Hematocrit (Bld) [Volume fraction] 44.8 % Normal 38.8-50.0 [facility] Comment on above: Performed By: #### A 1C WTH eA, LIPID, URIC, CMP, TEST, PSAS, CBC #### [place] [address] [place] #### INSULIN #### [facility] , Hemoglobin (Bld) [Mass/Vol] 15.3 g/dL Normal 13.0-17.0 [facility] Comment on above: Performed By: #### A 1C WTH eA, LIPID, URIC, CMP, TEST, PSAS, CBC #### [place] [address] [place] #### INSULIN #### [facility] , Lymphocytes (Bld) [#/Vol] 1.6 10*3/uL Normal 1.00-4.8 [facility] Comment on above: Performed By: #### A 1C WTH eA, LIPID, URIC, CMP, TEST, PSAS, CBC #### [place] [address] [place] #### INSULIN #### [facility] , Lymphocytes/100 WBC (Bld) 27.5 % Normal . [facility] Comment on above: Performed By: #### A 1C WTH eA, LIPID, URIC, CMP, TEST, PSAS, CBC #### [facility] [address] [place] [address] [place] #### INSULIN #### [facility] , MCH (RBC) [Entitic mass] 31.5 pg Normal 27.5-35.2 [facility] Comment on above: Performed By: #### A 1C WT eA, LIPID, URIC, CMP, TEST, PSAS, CBC #### [address] #### INSULIN #### [facility] , MCV (RBC) [Entitic vol] 92.1 fL Normal 83.5-101 [facility] Comment on above: Performed By: #### A 1C WTH eA, LIPID, URIC, CMP, TEST, PSAS, CBC #### [facility] [address] [place] [address] #### INSULIN #### [facility] , Mean Corpuscular HGB Conc 34.2 g/dL Normal 32.5-35.6 [facility] Comment on above: Performed By: #### A 1C WTH eA, LIPID, URIC, CMP, TEST, PSAS, CBC #### [facility] [address] [place] [address] [place] #### INSULIN #### [facility] , Monocytes (Bld) [#/Vol] 0.5 10*3/uL Normal 0.0-0.8 [facility] Comment on above: Performed By: #### A 1C WTH eA, LIPID, URIC, CMP, TEST, PSAS, CBC #### [facility] [address] [place] [address] #### INSULIN #### [facility] , Monocytes/100 WBC (Bld) 8.0 % Normal . [facility] Comment on above: Performed By: #### A 1C WT eA, LIPID, URIC, CMP, TEST, PSAS, CBC #### [facility] [address] [place] [address] [place] #### INSULIN #### [facility] , Neutrophils (Bld) [#/Vol] 3.7 10*3/uL Normal 1.8-7.7 [facility] Comment on above: Performed By: #### A 1C WTH eA, LIPID, URIC, CMP, TEST, PSAS, CBC #### [facility] [address] [place] [address] [place] #### INSULIN #### [facility] , Neutrophils/100 WBC (Bld) 61.6 % Normal . [facility] Comment on above: Performed By: #### A 1C WT eA, LIPID, URIC, CMP, TEST, PSAS, CBC #### [facility] [address] [place] [address] [place] #### INSULIN #### [facility] , Nucleated RBC/100 WBC (Bld) [Ratio] 0.0 % Normal 0-0.5 [facility] Comment on above: Performed By: #### A 1C WTH eA, LIPID, URIC, CMP, TEST, PSAS, CBC #### [facility] [address] [place] [address] [place] #### INSULIN #### [facility] , Platelet mean volume (Bld) [Entitic vol] 9.6 fL Normal 6.6-10.1 [facility] Comment on above: Performed By: #### A 1C WTH eA, LIPID, URIC, CMP, TEST, PSAS, CBC #### [facility] [address] [place] [address] [place] #### INSULIN #### [facility] , Platelets (Bld) [#/Vol] 242 10*3/uL Normal 150-450 [facility] Comment on above: Performed By: #### A 1C WTH eA, LIPID, URIC, CMP, TEST, PSAS, CBC #### [facility] [address] [place] [address] [place] #### INSULIN #### [facility] , RBC (Bld) [#/Vol] 4.87 10*6/uL Normal 3.90-5.60 [facility] Comment on above: Performed By: #### A 1C WTH eA, LIPID, URIC, CMP, TEST, PSAS, CBC #### [facility] [address] [place] [address] [place] #### INSULIN #### [facility] , WBC (Bld) [#/Vol] 6.0 10*3/uL Normal 4.5-11.0 [facility] Comment on above: Performed By: #### A 1C WTH eA, LIPID, URIC, CMP, TEST, PSAS, CBC #### [facility] [address] [place] [address] [place] #### INSULIN #### [facility] , Comprehensive Metabolic Pane france 02-28-2021 Albumin [Mass/Vol] 4.4 g/dL Normal 3.2-5.5 [facility] Comment on above: Performed By: #### A 1C WTH eA, LIPID, URIC, CMP, TEST, PSAS, CBC #### [facility] [address] [place] [address] [place] #### INSULIN #### [facility] , Albumin/Globulin [Mass ratio] 1.7 {ratio} Normal [facility] Comment on above: Performed By: #### A 1C WTH eA, LIPID, URIC, CMP, TEST, PSAS, CBC #### [facility] [address] [place] [address] [place] #### INSULIN #### [facility] , ALP [Catalytic activity/Vol] 70 U/L Normal 32-92 [facility] Comment on above: Performed By: #### A 1C WTH eA, LIPID, URIC, CMP, TEST, PSAS, CBC #### [facility] [address] [place] [address] [place] #### INSULIN #### [facility] , ALT [Catalytic activity/Vol] 36 U/L Normal 10-60 [facility] Comment on above: Performed By: #### A 1C WTH eA, LIPID, URIC, CMP, TEST, PSAS, CBC #### [facility] [address] [place] [address] [place] #### INSULIN #### [facility] , AST [Catalytic activity/Vol] 26 U/L Normal 10-42 [facility] Comment on above: Performed By: #### A 1C WTH eA, LIPID, URIC, CMP, TEST, PSAS, CBC #### [address] #### INSULIN #### [facility] , Bilirubin [Mass/Vol] 1.0 mg/dL Normal 0.3-1.2 [facility] Comment on above: Performed By: #### A 1C WTH eA, LIPID, URIC, CMP, TEST, PSAS, CBC #### [facility] [address] [place] [address] [place] #### INSULIN #### [facility] , Calcium [Mass/Vol] 9.6 mg/dL Normal 8.2-10.2 [facility] Comment on above: Performed By: #### A 1C WTH eA, LIPID, URIC, CMP, TEST, PSAS, CBC #### [facility] [address] [place] [address] [place] #### INSULIN #### [facility] , Chloride [Moles/Vol] 104 mmol/L Normal 95-114 [facility] Comment on above: Performed By: #### A 1C WTH eA, LIPID, URIC, CMP, TEST, PSAS, CBC #### [facility] [address] [place] [address] [place] #### INSULIN #### [facility] , CO2 [Moles/Vol] 26.3 mmol/L Normal 22.0-30.0 [facility] Comment on above: Performed By: #### A 1C WTH eA, LIPID, URIC, CMP, TEST, PSAS, CBC #### [facility] [address] [place] [address] [place] #### INSULIN #### [facility] , Creatinine [Mass/Vol] 1.29 mg/dL High 0.64-1.27 [facility] Comment on above: Performed By: #### A 1C WTH eA, LIPID, URIC, CMP, TEST, PSAS, CBC #### [facility] [address] [place] [address] [place] #### INSULIN #### [facility] , Estimated GFR ( Roberta > 60 Normal [facility] Comment on above: Result Comment: GFR estimated reference range: According to KDOQI guidelines, <60 ml/min/1.73m2 is sufficient to diagnose a patient with chronic kidney disease. Performed By: #### A 1C WTH eA, LIPID, URIC, CMP, TEST, PSAS, CBC #### [facility] [address] [place] [address] [place] #### INSULIN #### [facility] , Estimated GFR (Non- Am 59 Normal [facility] Comment on above: Performed By: #### A 1C WTH eA, LIPID, URIC, CMP, TEST, PSAS, CBC #### [facility] [address] [place] [address] [place] #### INSULIN #### [facility] , Globulin (S) [Mass/Vol] 2.6 g/dL Normal [facility] Comment on above: Performed By: #### A 1C WTH eA, LIPID, URIC, CMP, TEST, PSAS, CBC #### [facility] [address] [place] [address] [place] #### INSULIN #### [facility] , Glucose [Mass/Vol] 100 mg/dL Normal 70-100 [facility] Comment on above: Result Comment: Whitney Glucose Reference Range is dependent on time and content of last meal. Glucose of more than 200 mg/dL in a nonstressed, ambulatory subject supports the diagnosis of Diabetes Mellitus. ADA recommended reference range Performed By: #### A 1C WTH eA, LIPID, URIC, CMP, TEST, PSAS, CBC #### [address] #### INSULIN #### [facility] , Potassium [Moles/Vol] 4.5 mmol/L Normal 3.5-5.1 [facility] Comment on above: Performed By: #### A 1C WTH eA, LIPID, URIC, CMP, TEST, PSAS, CBC #### [address] #### INSULIN #### [facility] , Protein [Mass/Vol] 7.0 g/dL Normal 6.1-7.9 [facility] Comment on above: Performed By: #### A 1C WTH eA, LIPID, URIC, CMP, TEST, PSAS, CBC #### [place] [address] [place] #### INSULIN #### [facility] , Sodium [Moles/Vol] 138 mmol/L Normal 136-146 [facility] Comment on above: Performed By: #### A 1C WTH eA, LIPID, URIC, CMP, TEST, PSAS, CBC #### [place] [address] [place] #### INSULIN #### [facility] , Urea nitrogen [Mass/Vol] 9 mg/dL Normal 9-23 [facility] Comment on above: Performed By: #### A 1C WTH eA, LIPID, URIC, CMP, TEST, PSAS, CBC #### [place] [address] [place] #### INSULIN #### [facility] , Insulinon 02-28-2021 Insulin 14.2 u[iU]/mL Normal 2.6-24.9 [facility] Comment on above: Result Comment: Perf ormed at: - [facility] [address] [id number] Watch Assembly Instructor: Tung Friedman PhD, Phone: [phone] PERFORMED BY: [place] [address] PATHOLOGIST PLACEMENT COORDINATOR OANH TOLBERT M.D. Performed By: #### A 1C WTH eA, LIPID, URIC, CMP, TEST, PSAS, CBC #### [facility] [address] [place] [address] #### INSULIN #### [facility] , Lipid Panelon 02-28-2021 Cholesterol [Mass/Vol] 195 mg/dL Normal 140-200 [facility] Comment on above: Result Comment: Chol less than 200 mg/dl low risk Chol 201-239 mg/dl borderline risk Chol 240 mg/dl and greater high risk Performed By: #### A 1C WTH eA, LIPID, URIC, CMP, TEST, PSAS, CBC #### [facility] [address] [place] [address] #### INSULIN #### [facility] , Cholesterol in HDL [Mass/Vol] 38 mg/dL Normal 29-71 [facility] Comment on above: Result Comment: HDL CHOL ATP-III CLASSIFICATION Cardiovascular Risk HDL > or equal to 60 mg/dL LOW HDL < 40 mg/dL HIGH Performed By: #### A 1C WTH eA, LIPID, URIC, CMP, TEST, PSAS, CBC #### [facility] [address] [place] [address] [place] #### INSULIN #### [facility] , Cholesterol.total/Ch olesterol in HDL [Mass ratio] 5.1 {ratio} Normal <5.0 [facility] Comment on above: Result Comment: PERF ORMED BY: [place] [address] PATHOLOGIST PLACEMENT COORDINATOR OANH TOLBERT M.D. Performed By: #### A 1C WTH eA, LIPID, URIC, CMP, TEST, PSAS, CBC #### [facility] [address] [place] [address] [place] #### INSULIN #### [facility] , LDL Cholesterol,Calculat ed 138 mg/dL High 0-100 [facility] Comment on above: Result Comment: LDL ATP III CLASSIFICATION LDL less than 100 mg/dL Optimal LDL 100-129 mg/dL Near or above optimal LDL 130-159 mg/dL Borderline high LDL 160-189 mg/dL High LDL greater than 189 mg/dL Very high Performed By: #### A 1C WT eA, LIPID, URIC, CMP, TEST, PSAS, CBC #### [facility] [address] [place] [address] [place] #### INSULIN #### [facility] , Triglyceride w/Reflex 96 mg/dL Normal 35-149 [facility] Comment on above: Result Comment: TRIG ATP III CLASSIFICATION TRIG less than 150 mg/dL Normal TRIG 150-199 mg/dL Borderline high TRIG 200-500 mg/dL High TRIG greater than 500 mg/dL Very high Standard traceable to the Center for Disease Conrtrol and Prevention (CDC) test method. Performed By: #### A 1C WTH eA, LIPID, URIC, CMP, TEST, PSAS, CBC #### [place] [address] [place] #### INSULIN #### [facility] , VLDL CHOLESTEROL 19 mg/dL Normal [facility] Comment on above: Performed By: #### A 1C WTH eA, LIPID, URIC, CMP, TEST, PSAS, CBC #### [facility] [address] [place] [address] [place] #### INSULIN #### [facility] , PSA Screen (Yearly Only)on 0 02-28-2021 PSA Screen (Yearly Only) 1.120 ng/mL Normal 0.000-4.000 [facility] Comment on above: Order Comment: Is pa tient <50 yrs? Medicare does not pay <50.: N What is the date of the last PSA Screen?: U OR...The date Patient is eligible for PSA Screen?: U Is Medicare the insurance?: U Did you verify eligibility (Dx Time) check TestViewGp: YES TO ALL Result Comment: PERF ORMED BY: [place] [address] PATHOLOGIST PLACEMENT COORDINATOR OANH TOLBERT M.D. Performed By: #### A 1C WTH eA, LIPID, URIC, CMP, TEST, PSAS, CBC #### [facility] [address] [place] [address] #### INSULIN #### [facility] , Testosteroneon 02-28-2021 Testosterone 4.60 ng/mL Normal 1.75-7.81 [facility] Comment on above: Result Comment: PERF ORMED BY: [place] [address] PATHOLOGIST PLACEMENT COORDINATOR OANH TOLBERT M.D. Performed By: #### A 1C WTH eA, LIPID, URIC, CMP, TEST, PSAS, CBC #### [facility] [address] [place] [address] #### INSULIN #### [facility] , Uric Acidon 02-28-2021 Urate [Mass/Vol] 8.7 mg/dL High 2.6-7.2 [facility] Comment on above: Performed By: #### A 1C WTH eA, LIPID, URIC, CMP, TEST, PSAS, CBC #### [facility] [address] [place] [address] [place] #### INSULIN #### [facility] , Vital Signs Date Time Vital Sign Value Performing Clinician Mima gaona 07-02-2024 11:28-0500 Blood Pressure Location Marciano LO [facility] 07-02-2024 11:28-0500 Body temperature 97.7 [degF] Marciano LO [facility] [facility]2024 11:28-0500 Diastolic blood pressure 86 mm[Hg] Marciano LO [facility] 07-02-2024 11:28-0500 Heart rate 74 /min Marciano LO [facility] 07-02-2024 11:28-0500 Systolic blood pressure 128 mm[Hg] Marciano LO [facility] Encounters Encounter Date Encounter Type Care Provider Facility Start: 07-11-2025 ambulatory JOANNE Yusuf ty:[facility] Start: 07-05-2025 [facility] Start: 07-02-2024 End: 07-02-2024 ambulatory [facility] Start: 07-02-2024 End: 07-02-2024 Patient encounter procedure Marciano LO [facility] Start: 06-21-2024 ambulatory JOANNE BARTON Facility : [place] Start: 08-26-2022 End: 08-27-[address] RASHARD HAIR . Facility: Start: 07-19-2022 End: 07-20-[address] RAHSARD HAIR . Facility: Procedures Date Procedure Procedure Detail Performing Clinician Start: 06-06-2018 Partial meniscectomy of knee Marciano LO Comment on above: left Start: 07-07-2016 Colonoscopy Marciano LUZ Start: 06-06-2010 Chondrectomy of semi lunar cartilage of knee Marciano LO History of hernia repair Humera LO Vasectomy Marciano LO Immunizations Immunization Date Immunization Notes Care Provider Fa benjamín NEGATED: Highlighted row has not occurred!07-21-2021 influenza virus vaccine, unspecified formulation Marciano LO [facility] [place] Payers Date Payer Category Payer Unknown [id number] 1970 Unknown [id number] [id number] 1970 Unknown [id number] [id number] [id number] 1970 Unknown [id number] 2.16.8 [id number] 1970 Unknown [id number] 2.16.8 [id number] 1958 Unknown [id number] Social History Date Type Detail Facility Start: 07-02-2024 Tobacco smoking status Ex-smoker (fi nding) [facility] Sex Assigned At Male [facility] Functional Status Date Assessment Result Facility 07-02-2024 Functional Status N/A [facility] Hospital Discharge instructions 07-02-2024 Note Date & Type Note Facility 07-02-2024 Hospital Discharge instructions Patient Education 07/02/2024 12:31:26 Prostate Cancer Screening Prostate Cancer Screening Prostate cancer screening is testing that is done to check for the presence of prostate cancer in men. The prostate gland is a walnut-sized gland that is located below the bladder and in front of the rectum in males. The function of the prostate is to add fluid to semen during ejaculation. Prostate cancer is one of the most common types of cancer in men. Who should have prostate cancer screening? Screening recommendations vary based on age and other risk factors, as well as between the professional organizations who make the recommendations. In general, screening is recommended if: You are age 50 to 70 and have an average risk for prostate cancer. You should talk with your health care provider about your need for screening and how often screening should be done. Because most prostate cancers are slow growing and will not cause , screening in this age group is generally reserved for men who have a 10- to 15-year life expectancy. You are younger than age 50, and you have these risk factors: ?Having a father, brother, or uncle who has been diagnosed with prostate cancer. The risk is higher if your family member's cancer occurred at an early age or if you have multiple family members with prostate cancer at an early age. ?Being a male who is Black or is of Pb or sub-Saharan descent. In general, screening is not recommended if: You are younger than age 40. You are between the ages of 40 and 49 and you have no risk factors. You are 70 years of age or older. At this age, the risks that screening can cause are greater than the benefits that it may provide. If you are at high risk for prostate cancer, your health care provider may recommend that you have screenings more often or that you start screening at a younger age. How is screening for prostate cancer done? The recommended prostate cancer screening test is a blood test called the prostate-specific antigen (PSA) test. PSA is a protein that is made in the prostate. As you age, your prostate naturally produces more PSA. Abnormally high PSA levels may be caused by: Prostate cancer. An enlarged prostate that is not caused by cancer (benign prostatic hyperplasia, or BPH). This condition is very common in older men. A prostate gland infection (prostatitis) or urinary tract infection. Certain medicines such as male hormones (like testosterone) or other medicines that raise testosterone levels. A rectal exam may be done as part of prostate cancer screening to help provide information about the size of your prostate gland. When a rectal exam is performed, it should be done after the PSA level is drawn to avoid any effect on the results. Depending on the PSA results, you may need more tests, such as: A physical exam to check the size of your prostate gland, if not done as part of screening. Blood and imaging tests. A procedure to remove tissue samples from your prostate gland for testing (biopsy). This is the only way to know for certain if you have prostate cancer. What are the benefits of prostate cancer screening? Screening can help to identify cancer at an early stage, before symptoms start and when the cancer can be treated more easily. There is a small chance that screening may lower your risk of dying from prostate cancer. The chance is small because prostate cancer is a slow-growing cancer, and most men with prostate cancer from a different cause. What are the risks of prostate cancer screening? The main risk of prostate cancer screening is diagnosing and treating prostate cancer that would never have caused any symptoms or problems. This is called overdiagnosisand overtreatment. PSA screening cannot tell you if your PSA is high due to cancer or a different cause. A prostate biopsy is the only procedure to diagnose prostate cancer. Even the results of a biopsy may not tell you if your cancer needs to be treated. Slow-growing prostate cancer may not need any treatment other than monitoring, so diagnosing and treating it may cause unnecessary stress or other side effects. Questions to ask your health care provider When should I start prostate cancer screening? What is my risk for prostate cancer? How often do I need screening? What type of screening tests do I need? How do I get my test results? What do my results mean? Do I need treatment? Where to find more information The [place] [employer]: www.cancer.org [place] [employer] Association: www.auanet.org Contact a health care provider if: You have difficulty urinating. You have pain when you urinate or ejaculate. You have blood in your urine or semen. You have pain in your back or in the area of your prostate. Summary Prostate cancer is a common type of cancer in men. The prostate gland is located below the bladder and in front of the rectum. This gland adds fluid to semen during ejaculation. Prostate cancer screening may identify cancer at an early stage, when the cancer can be treated more easily and is less likely to have spread to other areas of the body. The prostate-specific antigen (PSA) test is the recommended screening test for prostate cancer, but it has associated risks. Discuss the risks and benefits of prostate cancer screening with your health care provider. If you are age 70 or older, the risks that screening can cause are greater than the benefits that it may provide. This information is not intended to replace advice given to you by your health care provider. Make sure you discuss any questions you have with your health care provider. Document Revised: 11/16/2021 Document Reviewed: 11/16/2021 [employer] Patient Education 2023 [employer]. Follow Up Care 06/22/2024 13:36:18 With:NEWTON GALVIN, Marciano Friedman, URL Address: [facility] [address] , [place] [address]- [phone] When: only if needed [facility] Evaluation + Plan note 07-02-2024 Note Date & Type Note Facility 07-02-2024 Evaluation + Plan note Diagnostic Tests PendingPSA Screen, Total 07/02/24 [facility] Clinical Note 07-02-2024 Note Date & Type Note Facility 07-02-2024 Note Patient Education Oncology Prostate Cancer Screening Prostate cancer screening is testing that is done to check for the presence of prostate cancer in men. The prostate gland is a walnut-sized gland that is located below the bladder and in front of the rectum in males. The function of the prostate is to add fluid to semen during ejaculation. Prostate cancer is one of the most common types of cancer in men. Who should have prostate cancer screening? Screening recommendations vary based on age and other risk factors, as well as between the professional organizations who make the recommendations. In general, screening is recommended if: ??? You are age 50 to 70 and have an average risk for prostate cancer. You should talk with your health care provider about your need for screening and how often screening should be done. Because most prostate cancers are slow growing and will not cause , screening in this age group is generally reserved for men who have a 10- to 15-year life expectancy. ??? You are younger than age 50, and you have these risk factors: ? Having a father, brother, or uncle who has been diagnosed with prostate cancer. The risk is higher if your family member's cancer occurred at an early age or if you have multiple family members with prostate cancer at an early age. ? Being a male who is Black or is of Pb or sub-Saharan descent. In general, screening is not recommended if: ??? You are younger than age 40. ??? You are between the ages of 40 and 49 and you have no risk factors. ??? You are 70 years of age or older. At this age, the risks that screening can cause are greater than the benefits that it may provide. If you are at high risk for prostate cancer, your health care provider may recommend that you have screenings more often or that you start screening at a younger age. How is screening for prostate cancer done? The recommended prostate cancer screening test is a blood test called the prostate-specific antigen (PSA) test. PSA is a protein that is made in the prostate. As you age, your prostate naturally produces more PSA. Abnormally high PSA levels may be caused by: ??? Prostate cancer. ??? An enlarged prostate that is not caused by cancer (benign prostatic hyperplasia, or BPH). This condition is very common in older men. ??? A prostate gland infection (prostatitis) or urinary tract infection. ??? Certain medicines such as male hormones (like testosterone) or other medicines that raise testosterone levels. A rectal exam may be done as part of prostate cancer screening to help provide information about the size of your prostate gland. When a rectal exam is performed, it should be done after the PSA level is drawn to avoid any effect on the results. Depending on the PSA results, you may need more tests, such as: ??? A physical exam to check the size of your prostate gland, if not done as part of screening. ??? Blood and imaging tests. ??? A procedure to remove tissue samples from your prostate gland for testing (biopsy). This is the only way to know for certain if you have prostate cancer. What are the benefits of prostate cancer screening? Screening can help to identify cancer at an early stage, before symptoms start and when the cancer can be treated more easily. ??? There is a small chance that screening may lower your risk of dying from prostate cancer. The chance is small because prostate cancer is a slow-growing cancer, and most men with prostate cancer from a different cause. What are the risks of prostate cancer screening? The main risk of prostate cancer screening is diagnosing and treating prostate cancer that would never have caused any symptoms or problems. This is called overdiagnosisand overtreatment. PSA screening cannot tell you if your PSA is high due to cancer or a different cause. A prostate biopsy is the only procedure to diagnose prostate cancer. Even the results of a biopsy may not tell you if your cancer needs to be treated. Slow-growing prostate cancer may not need any treatment other than monitoring, so diagnosing and treating it may cause unnecessary stress or other side effects. Questions to ask your health care provider ??? When should I start prostate cancer screening? What is my risk for prostate cancer? How often do I need screening? What type of screening tests do I need? How do I get my test results? What do my results mean? Do I need treatment? Where to find more information ??? The [place] Cancer Society: www.cancer.org ??? [place] [employer] Association: www.auanet.org Contact a health care provider if: ??? You have difficulty urinating. ??? You have pain when you urinate or ejaculate. ??? You have blood in your urine or semen. ??? You have pain in your back or in the area of your prostate. Summary ??? Prostate cancer is a common type of cancer in men. The prostate gland (more content not included)... [facility] Hospital course Narrative Note Date & Type Note Facility Hospital course Narrative No data available for this section [facility] [place] note Note Date & Type Note Facility [place] note No data available for this section [facility] Summary Purpose Family History No Family History Records FoundNo Family History Records Found No data available for this section No Family History Records Found Advance Directives No Advanced Directives Records FoundNo Advanced Directives Records FoundNo Advanced Directives Records Found Additional Source Comments (unrecognized sect ion and content) No Status Records FoundNo Status Records FoundNo Status Records Found INFORMATION SOURCE (unrecogn ized section and content) DATE CREATED AUTHOR 06/30/2021 [facility] DATE CREATED AUTHOR AUTHOR'S ORGANIZ ATION 11/12/2022 [facility] DATE CREATED AUTHOR AUTHOR'S ORGANIZ ATION 07/12/2024 [facility] Patient Care team informatio n (unrecognized section and content) Personnel Name: Rashard Hair MD Address: Address: [address] [place] [address] FOR RECORDS PERTAINING TO PATIENTS WHO ARE [...] BE BASED ON THE PRIMARY CLINICAL RECORDS. [facility] [facility]. provides no warranty or guarantee of the accuracy or completeness of information in this document.
--- NOTE | 2024-10-13 10:29 | XR_ITS ---
The [address] [address] Patient Name: ABELINO PATEL MRN: [id number] date: 1970 Sex: M Assigned Patient Location: [facility] Current Patient Location: Accession/Order Number: [id number] Exam Date: 10/15/2024 09:58 Report Date: 10/15/2024 10:00 At the request of: RASHARD HICKMAN MD Procedure: XR cervical spine 2-3V CERVICAL SPINE - 3 views: CLINICAL HISTORY: Numbness of left upper extremity R20.0 COMPARISON: None AP, lateral and odontoid views were obtained. There is reversal of the normal cervical curvature. There is no evidence of compression fracture or displacement. Slight disc space narrowing is present at C5-6 and C6-7. There are tiny endplate spurs. The atlantoaxial relationship is maintained. There is no prevertebral soft tissue swelling. XR/XR cervical spine 2-3V IMPRESSION: LOSS OF NORMAL CERVICAL LORDOSIS. MINOR DEGENERATIVE CHANGES. Impression dictated by: Lottie De La Vega M.D. 10/15/2024 10:00 AM Dictation Location: [place] [address] Electronically authenticated by: [id number] Y Date: 10/15/2024 10:00
== END 2024-10-13 10:22 | disposition home or self-care (01) ==
LOC: RAD 10:22
PROVIDERS: PCP Family Medicine; Visit Provider Family Medicine
DX: R20.0 Anesthesia of skin (principal); M50.30 Other cervical disc degeneration, unspecified cervical region
CPT/HCPCS: 72040

== ENCOUNTER 2024-11-12 07:58 | Outpatient (OUT) | payer OTHER, SELFPAY ==
--- OUTSIDE RECORDS SUMMARY | 2024-10-14 14:01 | XMS_ITS ---
Author Organization The [facility] in [place] Address [address] [place] [address] Care Team Providers Care Customs And Border Protection Officer Name Role Phone Buddy Hair Primary Care Provider [phone] REASON FOR VISIT Lab Results Encounters Encounter Location Date Provider Diagnosis [facility] [address] [place] [address] 10/14/2024 Buddy Hair Plan Of Treatment No Information [place] Notes * Malcolm CAGLEDOB:1970 (54 yo M)Acc No.[id number]:10/14/2024 Patient: Malcolm GUERRA :1970 A ge:54 Y S ex:Male Address:[address] [place] [address], [phone] * true * Date: Generated for Luis Angel menendez/Dante/eTransmitting on: 0 11/12/2024 08:00 AM EDT
--- OUTSIDE RECORDS SUMMARY | 2024-10-15 10:12 | XMS_ITS ---
Author Organization The [facility] in [place] Address [address] [place] [address] Care Team Providers Care Bridge Manager Name Role Phone Buddy Hair Primary Care Provider REASON FOR VISIT xr results Encounters Encounter Location Date Provider Diagnosis [facility] [address] [place] [address] 10/15/2024 Buddy Hair Plan Of Treatment No Information Progress Notes * Malcolm CAGLEDOB:1970 (54 yo M)Acc No.[id number]:10/15/2024 Patient: Malcolm GUERRA :1970 A ge:54 Y S ex:Male Address:[address] [place] [address], [phone] * true * Date: Generated for Luis Angel menendez/Dante/eTransmitting on: 0 11/12/2024 08:00 AM EDT
--- OUTSIDE RECORDS SUMMARY | 2024-11-08 06:36 | XMS_ITS ---
Author Organization The [facility] [place] Address [address] [place] [address] Care Team Providers Care Punch Press Feeder Name Role Phone Buddy Hair Primary Care Provider REASON FOR VISIT order for orbits Encounters Encounter Location Date Provider Diagnosis [facility] [address] [place] [address] 11/08/2024 Buddy Hair Encounter for other preprocedural examination Z01.818 Assessments Encounter Date Diagnosis (ICD Code) Assessment Notes Treatment Notes Treatment Clinical Notes Section Notes 11/08/2024 Encounter for other preprocedural examination (ICD-10 - Z01.818) Plan Of Treatment Pending Test Test Name Order Date XR Orbits Complete 11/08/2024 [place] Notes * Malcolm PATELDOB:1970 (54 yo M)Acc No.[id number]:11/08/2024 Patient: Malcolm GUERRA :1970 A ge:54 Y S ex:Male Address:[address] [place] [address], [phone] Subjective: * Chief Complaints: * O rder for orbits * Medical History: * Surgical History: * Hospitalization/Major Diagno stic Procedure: * Medications: Objective: * Vitals: * Physical Examination: Assessment: * Assessment: 1. E ncounter for other preprocedural examination - Z01.818 (Primary) Plan: * Treatment: * Procedure Codes: * true * Date: Generated for Printi ng/Faxing/eTransmitting on: 0 11/12/2024 08:00 AM EDT
--- OUTSIDE RECORDS SUMMARY | 2024-11-12 08:00 | XMS_ITS | Patient Health Record ---
Author Organization [facility] in [place] Address [address] [place] [address] Care Team Providers Care Orthodontic Assistant Name Role Phone Buddy Hickman Primary Care Provider Allergies No Known Allergies Results Component Value Reference Range Notes PSA Total+% Free Reviewed date:10/14/2024 06:02:22 PM Interpretation: Performing Lab: Notes/Report: [facility] , Prostate Specific Ag 2.8 0.0-4.0 ng/mL followed by a subsequent confirmatory PSA value 0.2 ng/mL Nitish ECLIA methodology. radical prostatectomy. The AUA defines biochemical should decrease and remain at undetectable levels after interpreted as absolute evidence of the presence or absence According to the [place] [employer], Serum PSA of malignant disease. recurrence as an initial PSA value 0.2 ng/mL or greater kits cannot be used interchangeably. Results cannot be or greater. Values obtained with different assay methods or PSA, Free 0.42 N/A ng/mL Nitish ECLIA methodology. % Free PSA 15.0 . % men with non-suspicious HOMAR results and total PSA between of men. % Free PSA 50-64 yr 65-75 yr Automobile Upholsterer: Tung Friedman PhD, Phone: [phone] The table below lists the probability of prostate cancer for percent free PSA for any other population 4 and 10 ng/mL, by patient age (Mikki et al, LOBO 1998, Performed at: - [facility] >25.00% 5% 9% recommendations regarding the use of Please note: Lorean did not make specific 0.00-10.00% 56% 55% 20.01-25.00% 10% 20% 15.01-20.00% 17% 23% 10.01-15.00% 24% 35% [phone]). [address] [place], [place] [phone] Performing Lab: see note [facility] LB Testosterone,Free and Total Reviewed date:10/14/2024 06:02:22 PM Interpretation: Performing Lab: Notes/Report: [facility] , Testosterone 744 264-916 ng/dL [id number]. healthy nonobese males (BMI <30) between 19 and 39 years old. danial Hercules.al. JCEM 2017,102;9362-4797. PMID: Adult male reference interval is based on a population of Free Testosterone(Direct) 8.5 7.2-24.0 pg/mL Automobile Upholsterer: Tung Friedman PhD, Phone: [phone] [address] [place], [place] [phone] [address] [place] [phone] Performed at: [facility] Performed at: [facility] Automobile Upholsterer: Ligia Evangelista MD, Phone: [phone] Performing Lab: see note [facility] TSH Reviewed date:10/10/2024 01:02:14 PM Interpretation: Performing Lab: Notes/Report: [facility] , Thyroid Stimulating Hormone 1.401 0.358-3.740 uIU/mL Performing Lab: see note ML - [facility] LB T4 Reviewed date:10/10/2024 01:02:14 PM Interpretation: Performing Lab: Notes/Report: [facility] , T4 Thyroxine 7.80 4.50-12.10 ug/dL Performing Lab: see note ML - [facility] LB PROF 14(COMP METB) Reviewed date:10/10/2024 01:02:14 PM Interpretation: Performing Lab: Notes/Report: [facility] , Sodium 140 136-145 mmol/L Potassium 4.2 3.5-5.1 mmol/L Chloride 106 98-107 mmol/L Carbon Dioxide 30.3 21.0-32.0 mmol/L Anion Gap 7.9 Glucose 94 74-106 mg/dL Blood Urea Nitrogen 9.0 7.0-18.0 mg/dL Creatinine 1.30 0.70-1.30 mg/dL Estimated GFR ( Roberta >60 >=60 mL/min/1.73m 2 Estimated GFR (Non- Dionna 58 >=60 mL/min/1.73m 2 BUN Creatinine Ratio 6.9 Calcium 9.2 8.5-10.1 mg/dL Bilirubin Total 0.8 0.2-1.0 mg/dL Aspartate Amino Transferase 17 15-37 U/L Alanine Aminotransferase 28 16-63 U/L Alkaline Phosphatase 69 46-116 U/L Total Protein 7.2 6.4-8.2 g/dL Albumin Level 4.3 3.4-5.0 g/dL Globulin 2.9 Albumin Globulin Ratio 1.5 Performing Lab: see note ML - [facility] LB LIPID PROFILE Reviewed date:10/10/2024 01:02:14 PM Interpretation: Performing Lab: Notes/Report: [facility] , Triglycerides 86 <=150 mg/dL Cholesterol 180 <=200 mg/dL HDL Cholesterol 53 40-60 mg/dL <40 mg/dl - HIGH CARDIOVASCULAR RISK > or =60 mg/dl - LOW CARDIOVASCULAR RISK LDL Cholesterol Calculated 109.8 100-129 mg/dl NEAR OR ABOVE OPTIMAL >190 mg/dl VERY HIGH 130-159 mg/dl BORDERLINE HIGH <100 mg/dl OPTIMAL 160-189 mg/dl HIGH VLDL CHOLESTEROL 17.2 Chol HDL Ratio 3.4 4.4 - 7.1 AVERAGE RISK 7.1 - 11.0 MODERATE RISK 3.3 - 4.4 LOW RISK >11.0 HIGH RISK Performing Lab: see note ML - [facility] LB GLYCOHEMOGLOBIN A1C Reviewed date:10/10/2024 01:02:14 PM Interpretation: Performing Lab: Notes/Report: [facility] , Glycohemoglobin A1C 5.6 4.5-6.2 % ADA THERAPEUTIC TARGET < 7.0 ADA RECOMMENDED LIMIT 4.0 - 6.0 > 7.0 ACTION SUGGESTED Estimated Average Glucose 114 Performing Lab: see note ML - [facility] FREE T3 Reviewed date:10/10/2024 01:02:14 PM Interpretation: Performing Lab: Notes/Report: [facility] , Free T3 3.25 2.18-3.98 pg/mL Performing Lab: see note ML - [facility] CBC AUTO DIFF Reviewed date:10/10/2024 01:02:14 PM Interpretation: Performing Lab: Notes/Report: [facility] , White Blood Count 6.2 4.0-11.0 10 3/uL Red Blood Count 4.77 4.70-6.10 10 6/uL Hemoglobin 14.8 14.0-18.0 g/dL Hematocrit 44.2 42.0-54.0 % Mean Corpuscular Volume 92.7 80.0-94.0 fL Mean Corpuscular Hemoglobin 31.0 25.9-34.0 pg Mean Corpuscular HGB Conc 33.5 29.9-35.2 g/dL Red Cell Distribution Width 12.8 11.0-15.0 % Platelet Count 242 150-450 10 3/uL Mean Platelet Volume 11.6 9.5-13.5 fL Neutrophils Percent Auto 55.9 43.0-75.0 % Lymphocytes Percent Auto 34.3 20.5-60.0 % Monocytes Percent Auto 7.7 1.7-12.0 % Eosinophils Percent Auto 1.1 0.9-7.0 % Basophils Percent Auto 0.8 0.2-2.0 % Immature Granulocytes Pct Auto 0.2 0.0-0.5 % Neutrophils Absolute Auto 3.5 1.4-6.5 10 3/uL Lymphocytes Absolute Auto 2.1 1.2-3.8 10 3/uL Monocytes Absolute Auto 0.5 0.3-0.8 10 3/uL Eosinophils Absolute Auto 0.1 0.0-0.7 10 3/uL Basophils Absolute Auto 0.1 0.0-0.1 10 3/uL Immature Granulocytes Abs Auto 0.01 0.00-0.03 10 3/uL Performing Lab: see note - [facility] LB PSA Reviewed date:07/02/2024 08:12:45 PM Interpretation: Performing Lab: Notes/Report: [facility] , Prostate Specific Antigen Dx 2.33 <=4.00 ng/mL Performing Lab: see note - [facility] LB US scrotum doppler Reviewed date:05/10/2024 12:44:57 PM Interpretation: Performing Lab: Notes/Report: Source Facility: [facility] [place] [address] [place] [address] Ultrasound Report Signed Patient: ABELINO CAGLE MR#: [id number] : 1970 Acct:[id number] Age/Sex: 54 / M ADM Date: 05/10/24 Loc: RAD Attending Dr: Rashard Hickman M.D. Ordering Physician: Rashard Hickman M.D. Date of Service: 05/10/24 Procedure(s): US scrotum doppler Accession Number(s): [id number] cc: Rashard Hickman M.D. [address] [address] Patient Name: ABELINO CAGLE MRN: [id number] date: 1970 Sex: M Assigned Patient Location: [facility] Current Patient Location: RAD Accession/Order Number: [id number] Exam Date: 05/10/2024 10:20 Report Date: 05/10/2024 11:19 At the request of: RASHARD HICKMAN Procedure: US scrotum doppler Ultrasound scrotum/testicle HISTORY: Testicular Pain Right TECHNIQUE: Dedicated ultrasound of the scrotum and testes performed. FINDINGS: Comparison: None. Both testicles demonstrate normal echotexture and echogenicity. Right testicle measures 5.2 x 3.5 x 3.0 cm. The left testicle measures 5.4 x 3.0 x 2.8 cm. There is symmetrical color flow and Dopplerable arterial and venous waveforms in both testicles. There is no testicular mass. Right epididymal head measures 0.9 cm and is the body is diffusely thickened and hypervascular. The left epididymal head measures 1.1 cm. Left epididymis demonstrates normal color flow. Small bilateral hydroceles. There is no varicocele. US/US scrotum doppler IMPRESSION: 1. Acute right epididymitis. No associated right orchitis at this time. Recommend clinical follow-up to resolution. 2. Negative for testicular torsion or testicular mass. 3. Small bilateral hydroceles. 4. Negative for varicocele. Electronically authenticated by: ORLIN OTTO Date: 05/10/2024 11:19 Dictated By: Orlin Otto M.D. Signed By: 05/10/24 1121 DD/ 1119 TD/TT: Tool Repair Technician: The [address] [address] Ultrasound Report Signed Patient: ALLYSSA CAGLE MR#: [id number] : 1970 Acct:[id number] Age/Sex: 54 / M ADM Date: 05/10/24 Loc: RAD Attending Dr: Kunal Hickman M.D. Ordering Physician: Rashard Hickman M.D. Date of Service: 05/10/24 Procedure(s): US scrotum doppler Accession Number(s): [id number] cc: Rashard Hickman M.D. [place] [id number] Patient Name: ABELINO CAGLE MRN: [id number] date: 1970 Sex: M Assigned Patient Location: RAD Current Patient Location: RAD Accession/Order Number: [id number] Exam Date: 10:20 Report Date: 05/10/2024 11:19 At the request of: RASHARD HICKMAN Procedure: US scrotu m doppler Ultrasound scrotum/testicle HISTORY: Testicular Pain Right TECHNIQUE: Dedicated ultrasound of the scrotum and testes performed. FINDINGS: Comparison : None. Both testicles demonstrate normal echotexture and echogenicity. Right testicle measures 5.2 x 3.5 x 3.0 cm. The left testicle measures 5.4 x 3.0 x 2.8 cm. There is symmetrical color flow and Dopplerable arterial and venous waveforms in both testicles. There is no testicular mass. Right epididymal hea d measures 0.9 cm and is the body is diffusely thickened and hypervascular. T he left epididymal head measures 1.1 cm. Left epididymis demonstrates normal color flow. Small bilateral hydroceles. There is no varicocele. US/US scrotum doppler IMPRESSION: 1. Acute right epididymitis. No associated right orchitis at this time. Recommend clinical follow-up to resolution. 2. Negative for testicular torsion or testicular mass. 3. Small bilateral hydroceles. 4. Negative for varicocele. Electronically authenticated by: ORLIN OTTO Date: 05/10/2024 11:19 Dictated By: Orlin Otto M.D. Signed By: 05/10/24 1121 DD/ 1119 TD/TT: Tool Repair Technician: XR cervical spine 2-3V Reviewed date:10/15/2024 02:13:09 PM Interpretation: Performing Lab: Notes/Report: Source Facility: [place] [address] [place] [address] XRay Report Signed Patient: ABELINO CAGLE MR#: [id number] : 1970 Acct:[id number] Age/Sex: 54 / M ADM Date: 10/13/24 Loc: RAD Attending Dr: Rashard Hickman M.D. Ordering Physician: Rashard Hickman M.D. Date of Service: 10/13/24 Procedure(s): XR cervical spine 2-3V Accession Number(s): [id number] cc: Rashard Hickman M.D. [place] [address] Patient Name: ABELINO CAGLE MRN: [id number] date: 1970 Sex: M Assigned Patient Location: [facility] Current Patient Location: Accession/Order Number: [id number] Exam Date: 10/15/2024 09:58 Report Date: 10/15/2024 10:00 At the request of: RASHARD HICKMAN MD Procedure: XR cervical spine 2-3V CERVICAL SPINE - 3 views: CLINICAL HISTORY: Numbness of left upper extremity R20.0 COMPARISON: None AP, lateral and odontoid views were obtained. There is reversal of the normal cervical curvature. There is no evidence of compression fracture or displacement. Slight disc space narrowing is present at C5-6 and C6-7. There are tiny endplate spurs. The atlantoaxial relationship is maintained. There is no prevertebral soft tissue swelling. XR/XR cervical spine 2-3V IMPRESSION: LOSS OF NORMAL CERVICAL LORDOSIS. MINOR DEGENERATIVE CHANGES. Impression dictated by: Lottie De La Vega M.D. 10/15/2024 10:00 AM Dictation Location: [place] [address] Electronically authenticated by: [id number] Y Date: 10/15/2024 10:00 Dictated By: Lottie De La Vega M.D. Signed By: 10/15/24 1002 DD/ 1000 TD/TT: Tool Repair Technician: The [address] [address] XRay Report Signed Patient: ALLYSSA CAGLE MR#: [id number] : 1970 Acct:[id number] Age/Sex: 54 / M ADM Date: 10/13/24 Loc: RAD Attending Dr: Kunal Hickman M.D. Ordering Physician: Rashard Hickman M.D. Date of Service: 10/13/24 Procedure(s): XR cervical spine 2-3V Accession Number(s): [id number] cc: Rashard Hickman M.D. [place] [id number] Patient Name: ABELINO CAGLE MRN: [id number] date: 1970 Sex: M Assigned Patient Location: [facility] Current Patient Location: Accession/Order Number: [id number] Exam Date: 10/15/2024 09:58 Report Date: 10/15/2024 10:00 At the request of: RASHARD HICKMAN MD Procedure: XR cervic al spine 2-3V CERVICAL SPINE - 3 views: CLINICAL HISTORY: Numbness of left upper extremity R20.0 COMPARISON: None AP, lateral and odontoid views were obtained. There is reversal of the normal cervical curvature. There is no evidence of compression fracture or displacement. Slight disc space narrowing is present at C5-6 and C6-7. There are tiny endplate spurs. The atlantoaxial relationship is maintained. There is no prevertebral soft tissue swelling. XR/XR cervical spine 2-3V IMPRESSION: LOSS OF NORMAL CERVICAL LORDOSIS. MINOR DEGENERATIVE CHANGES. Impression dictated by: Lottie De La Vega M.D. 10/15/2024 10:00 AM Dictation Location: [place] [address] Electronically authenticated by: [id number] Y Date: 10/15/2024 10:00 Dictated By: Lottie De La [place]ega M.D. Signed By: 10/15/24 1002 DD/ 1000 TD/TT: Tool Repair Technician: Reason For Referral Diagnosis 1 Testicular pain, rig ht (N50.811) Referral Organization [facility] Referring Provider First Name Buddy Referring Provider Last Name Laxmi Referring Provider Speciality Family Med markie Referred Provider Marciano Lo Referred Provider Specialty Urology Referral Priority Routine Medications Medication SIG (Take, Route, Fr equency, Duration) Notes Start Date End Date Status Vardenafil HCl 20 MG 1 tablet 60 minutes before sexual activity as needed Orally Once a day for 30 days 10/10/2024 Ac tive Multivitamin Active Social History Tobacco Use: Social History Observation Description Date Details (start date - stop date) Former Smoker 06/06/1982 - 06/06/2013 Tobacco Use/Smoking Question Answer Notes Patient is a former smoker When did you start smoking? 06/06/1982 When did you stop smoking? 06/06/2013 How long has it been since you last smoked? 5-10 years Alcohol Screen (Audit-C) Question Answer Notes Did you have a drink contain ing alcohol in the past year? Yes How often did you have 6 or more drinks on one occasion in the past year? Monthly or less (1 point) How many drinks did you have on a typical day when you were drinking in the past year? 3 or 4 drinks (1 point) How often did you have a dri nk containing alcohol in the past year? Weekly (3 points) Points 5 Interpretation Positive AUDIT-C (Standard) Question Answer Notes Did you have a drink contain ing alcohol in the past year? Yes How often did you have six o r more drinks on one occasion in the past year? 2 to 3 times per week (3 points) How many drinks did you have on a typical day when you were drinking in the past year? 5 or 6 drinks (2 points) How often did you have a dri nk containing alcohol in the past year? 2 to 3 times a week (3 points) Points 8 Interpretation Positive Problems Problem Type SNOMED Code ICD Code Onset Dates Problem Status W/U Status Risk Notes Problem Achilles tendonitis (62308222) Achilles tendonitis (M76.60) Active confirmed Problem Impotence (N52.9) Active confirmed Problem Enthesopathy of knee (19243608) Knee bursitis, left (M70.52) Active confirmed Problem Pain of right testicle (finding) (9530014302851246 7) Testicular pain, right (N50.811) Active confirmed Vital Signs Blood pressure diastolic 76 mm Hg 10/10/2024 Height 69 in 10/10/2024 Blood pressure systolic 116 mm Hg 10/10/2024 Weight 234.6 lbs 10/10/2024 BMI 34.64 kg/m2 10/10/2024 Encounters Encounter Location Date Provider Diagnosis [facility] [address] [place] [place] [address] 05/10/2024 Buddy Hoy Testicular pain, rig ht N50.811 [facility] [address] [place] [place] [place] [address] 06/04/2024 Buddy Hoy Testicular pain, rig ht N50.811 [facility] [address] [place] [place] [address] 01/02/2024 Buddy Hoy Achilles tendonitis M76.60 [facility] [address] [place] [place] [address] 10/10/2024 Buddy Hoy Impotence N52.9 [facility] [address] [place] [place] [address] 05/10/2024 Buddy Hoy [facility] [address] [place] [place] [address] 05/25/2024 Buddy Hoy [facility] [address] [place] [place] [address] 06/20/2024 Buddy Hoy Testicular pain, rig ht N50.811 [facility] [address] [place] [place] [address] 10/10/2024 Buddy Hoy [facility] [address] [place] [address] 10/12/2024 Buddy Hoy Numbness of extremi ty R20.0 [facility] [address] [place] [place] [address] 10/14/2024 Buddy Hoy [facility] [address] [place] [place] [place] [address] 10/15/2024 Buddy Hoy [facility] [address] [place] [place] [place] [address] 11/08/2024 Buddy Hoy Encounter for other preprocedural examination Z01.818 Assessments Encounter Date Diagnosis (ICD Code) Assessment Notes Treatment Notes Treatment Clinical Notes Section Notes 01/02/2024 Achilles tendonitis (ICD-10 - M76.60) needs injections today 05/10/2024 Testicular pain, right (ICD-10 - N50.811) 06/04/2024 Testicular pain, right (ICD-10 - N50.811) 10/10/2024 Impotence (ICD-10 - N52.9) 06/20/2024 Testicular pain, right (ICD-10 - N50.811) 10/12/2024 Numbness of extremity (ICD-10 - R20.0) 11/08/2024 Encounter for other preprocedural examination (ICD-10 - Z01.818) Plan Of Treatment Pending Test Test Name Order Date HEMOGLOBIN A1C (GLYCO) 10/10/2024 LIPID PANEL (CHOL/TRIG/HDL/LDL) 10/11/19 25 PSA-FREE AND TOTAL 10/10/2024 Blood Culture - LC 12/20/2022 XR Orbits Complete 11/08/2024 US Testicular w/ Duplex 05/10/2024 CBC AUTO DIFF 12/20/2022 CRP 12/20/2022 SED RATE WESTERGREN 12/20/2022 TESTOSTERONE, FREE,DIRECT, TOTAL 025 URIC ACID SERUM 12/20/2022 MRI CSPINE WO CON 10/12/2024 XR CSPINE 2_3 VIEWS 10/12/2024 XR KNEE LT 4V or > 01/11/2023 THYROID PANEL (T4/TSH/FREE T3) 5 CMP (COMP MET MARTINEZ) w/eGFR CKD-EPI 2024 CBC WITH DIFF 10/10/2024 Insurance Providers Payer Name Payer Address Payer Phone Subscriber Number Group Number Insured Name Patient Relationship to Insured Coverage Start Date Coverage End Date MMO [employer] [address] [place], [place] [id number] Abelino Cagle Self - patient is the insured 3 Medications Administered Medication Instructions Date of Administration Dosage Notes Kenalog-40 12/20/2022 120 mg 120 Kenalog-40 01/02/2024 80 mg 80 Ketorolac Tromethamine 12/20/2022 60 mg 60 Ketorolac Tromethamine 01/02/2024 60 mg 60 Medical (General) History Medical History History ICD Code Cervical disc disease M50.90 Diverticulitis K57.92 GERD (gastroesophageal reflux disease) K 21.9 Dyshidrotic eczema L30.1 Osteoarthritis M19.90 Vertigo R42 Surgical History Surgery Date(Month/Year) Vasectomy Meniscectomy- right 2010 Partial Left Knee Meniscectomy- Dr. Montiel a 2019 TONSILLECTOMY,OVER 12 YRS Knee Arthroscopy- Left
--- OUTSIDE RECORDS SUMMARY | 2024-11-12 08:00 | XMS_ITS | Clinical Summary ---
Author Organization [facility] Address [address] [place] [address] Care Team Providers Care Police Captain Name Role Phone Isak Hair MD Primary Care Provider [phone] Allergies No known active allergies Medications No known medications Active Problems No known active problems Social History Tobacco Use Types Packs/Day Years Used Date Smoking Tobacco: Never Alcohol Use Standard Drinks/Week Comments Not Asked 0 (1 standard drink = 0.6 oz pur e alcohol) Sex and Gender Information Value Date Recorded Sex Assigned at Not on file Legal Sex Male 4:52 PM EST Gender Identity Not on file Sexual Orientation Not on file Last Filed Vital Signs Vital Sign Reading Time Taken Comments Blood Pressure 114/80 06/21/2013 9:43 AM EST Pulse 80 06/21/2013 9:43 AM EST Temperature - - Respiratory Rate - - Oxygen Saturation - - Inhaled Oxygen Concentration - - Weight 98.4 kg (217 lb) 06/21/2013 9:43 AM EST Height 175.3 cm (5' 9 ) 06/21/2013 9:43 AM EST Body Mass Index 32.05 06/21/2013 9:43 AM EST Plan of Treatment Not on file Care Teams Police Captain Relationship Specialty Start Date End Date Iska Hair MD [address] [place] [address] PCP - General 06/21/13
--- OUTSIDE RECORDS SUMMARY | 2024-11-12 08:00 | XMS_ITS | Encounter Summary ---
Author Organization [facility] Address [address] [place] [address] Care Team Providers Care Business Economist Name Role Phone Isak Hair MD Primary Care Provider [phone] Reason for Referral * Imaging (Routine) - Closed Specialty Diagnoses / Procedures Referred By Contac t Referred To Contact Radiology Diagnoses Internal derangement of right knee Procedures MR knee right wo IV contrast Tatyana Torres NP fax: [facility] [address] [place] [address] Referral ID Status Reason Start Date Expiration Date Visits Re quested Visits Authorized [id number] Closed 03/02/2023 08/29/2023 1 1 Encounter Details Date Type Department Care Team (Late st Contact Info) Description 03/02/2023 Telephone [facility] [address] [facility] [address] [place] [address] Elsi Omer ARRT Social History Tobacco Use Types Packs/Day Years Used Date Smoking Tobacco: Former Cigarettes Q uit: 2012 Smokeless Tobacco: Never Alcohol Use Standard Drinks/Week Comments Yes 0 (1 standard drink = 0.6 oz pur e alcohol) Sex and Gender Information Value Date Recorded Sex Assigned at Not on file Legal Sex Male 7:00 PM EDT Gender Identity Not on file Sexual Orientation Not on file documented as of this encounter Plan of Treatment Scheduled Orders Name Type Priority Associated Diagnoses Orde r Schedule MR knee right wo IV contrast Imaging Routine Internal derangement of right knee Expected: 03/02/2023 (Approximate), Expires: 03/02/2024 documented as of this encounter Visit Diagnoses Diagnosis Internal derangement of right knee- Primary documented in this encounter Care Teams Business Economist Relationship Specialty Start Date End Date Isak Hair MD PCP - General Family Medicine 02/01/23 documented as of this encounter
--- OUTSIDE RECORDS SUMMARY | 2024-11-12 08:00 | XMS_ITS | Encounter Summary ---
Author Organization [facility] Address [address] [place] [address] Care Team Providers Care Clothing Examiner Name Role Phone Isak Hair MD Primary Care Provider [phone] Encounter Details Date Type Department Care Team (Late st Contact Info) Description 04/27/2023 Abstract [facility] [address] [place] [address] Tatyana Torres ROPE LAYING MACHINE OPERATOR Social History Tobacco Use Types Packs/Day Years Used Date Smoking Tobacco: Former Cigarettes Q uit: 2012 Smokeless Tobacco: Never Tobacco Cessation:Counseling Given: Not Answered Alcohol Use Standard Drinks/Week Comments Yes 0 (1 standard drink = 0.6 oz pur e alcohol) 2-4 times a month Sex and Gender Information Value Date Recorded Sex Assigned at Not on file Legal Sex Male 7:00 PM EDT Gender Identity Not on file Sexual Orientation Not on file documented as of this encounter Plan of Treatment Not on file documented as of this encounter Visit Diagnoses Not on filedocumented in this encounter Care Teams Clothing Examiner Relationship Specialty Start Date End Date Isak Hair MD PCP - General Family Medicine 02/01/23 documented as of this encounter
--- OUTSIDE RECORDS SUMMARY | 2024-11-12 08:01 | XMS_ITS | Clinical Summary ---
Author Organization [facility] Address [address] [place] [address] Care Team Providers Care Student Activities Director Name Role Phone Isak Hair MD Primary Care Provider [phone] Allergies No known active allergies Medications No known medications Family History Medical History Relation Name Comments COPD Father Dementia Mother Relation Name Status Comments Father Mother Social History Tobacco Use Types Packs/Day Years [...] Sign Reading Time Taken Comments Blood Pressure - - Pulse - - Temperature - - Respiratory Rate - - Oxygen Saturation - - Inhaled Oxygen Concentration - - Weight 99.8 kg (220 lb) 02/02/2023 11:22 AM EDT Height 175.3 cm (5' 9 ) 02/02/2023 11:22 AM EDT Body Mass Index 32.49 02/02/2023 11:22 AM EDT Plan of Treatment Not on file Insurance [address] [place] [phone] [employer] Care Teams Student Activities Director Relationship Specialty Start Date End Date Isak Hair MD PCP - General Family Medicine 02/01/23
--- OUTSIDE RECORDS SUMMARY | 2024-11-12 08:01 | XMS_ITS | Clinical Summary ---
Author Organization [facility] [facility] Address [id number] [address] [place] [address] Care Team Providers Care Cotton Roll Packer Name Role Phone Isak Hair MD Primary Care Provider [phone] Allergies No known active allergies Medications No known medications Social History Tobacco Use Types Packs/Day Years Used Date Smoking Tobacco: Never Smokeless Tobacco: Never Tobacco Cessation:Counseling Given: Not Answered Childcare Answer Date Recorded Childcare Unknown 11/16/2018 Employment Answer Date Recorded Employment Unknown 11/16/2018 Hunger Screening Answer Date Recorded Within the past 12 months we worried whether our food would run out before we got money to buy more. Never True 04/12/2023 Within the past 12 months th e food we bought just didn't last and we didn't have money to get more. Never True 04/12/2023 Purpose - Life Answer Date Recorded Purpose and direction in life Unknown Sex and Gender Information Value Date Recorded Sex Assigned at Not on file Legal Sex Male 2:25 PM EDT Gender Identity Not on file Sexual Orientation Not on file Last Filed Vital Signs Vital Sign Reading Time Taken Comments Blood Pressure - - Pulse - - Temperature - - Respiratory Rate - - Oxygen Saturation - - Inhaled Oxygen Concentration - - Weight 105.2 kg (232 lb) 04/12/2023 7:37 AM EST Height 175.3 cm (5' 9 ) 04/12/2023 7:37 AM EST Body Mass Index 34.26 04/12/2023 7:37 AM EST Plan of Treatment Health Maintenance Due Date Last Done Comments Depression Screening 1983 DTaP,Tdap and Td Vaccines (1 - Tdap) 1990 Zoster (Shingles) Vaccine (1 of 2) 2021 Adult BMI Screening 04/12/2024 04/12/2023 Tobacco Screening 04/12/2024 04/12/2023 Influenza Vaccine 02/04/2025 Medical Devices Not on file Insurance [employer] Care Teams Cotton Roll Packer Relationship Specialty Start Date End Date Isak Hair MD PCP - General 01/06/17
--- OUTSIDE RECORDS SUMMARY | 2024-11-12 08:01 | XMS_ITS | Clinical Summary ---
Author Organization [facility] Address [address] [place] [address] Care Team Providers Care Poured Wall Foreman Name Role Phone Isak Hair MD Primary Care Provider [phone] Allergies No known active allergies Medications No known medications Active Problems Problem Noted Date Diagnosed Date Chest pain 04/11/2013 Overview (04/11/2013): ECHO (02/2013): normal STRESS TEST (04/2012): no ischemia at 10.1 METS STRESS TEST (02/06/2013): LVEF 68%, no ischemia CTA CHEST (01/05/2013): no PE, masses, effusion, aneurysm, bone lesion or any other suspicious findings Tobacco abuse Overview (04/09/2013): quit 2007 Family History Medical History Relation Comments None Mother Relation Status Comments Mother Social History Tobacco Use Types Packs/Day Years Used Date Smoking Tobacco: Former Cigarettes Q uit: 04/09/2008 Alcohol Use Standard Drinks/Week Comments Yes 0 (1 standard drink = 0.6 oz pur e alcohol) Sex and Gender Information Value Date Recorded Sex Assigned at Not on file Legal Sex Male 10:08 AM EDT Gender Identity Not on file Sexual Orientation Not on file Occupation Industry Job Start Date Job End Date construction Not on file Not on file Not on file Last Filed Vital Signs Vital Sign Reading Time Taken Comments Blood Pressure 127/73 08/29/2013 8:29 AM EDT Pulse 95 08/29/2013 8:29 AM EDT Temperature 36.6 C (97.9 F) 05/14/2013 8:27 AM EST Respiratory Rate 12 08/29/2013 8:29 AM EDT Oxygen Saturation 95% 08/29/2013 8:29 AM EDT Inhaled Oxygen Concentration - - Weight 96.6 kg (213 lb) 08/29/2013 8:29 AM EDT Height 175.3 cm (5' 9 ) 05/14/2013 8:27 AM EST Body Mass Index 31.45 05/14/2013 8:27 AM EST Plan of Treatment Health Maintenance Due Date Last Done Comments Anxiety Screening 1989 Depression Screening 1989 HIV Screening 1989 Hepatitis C Screening 1989 DTaP,Tdap,Td Vaccine (1 - Tdap) 1990 Hepatitis B Vaccine (1 of 3 - 19+ 3-dose series) 04/[address] Colonography 2016 Cologuard (FIT-DNA) 2016 Colonoscopy 2016 Colorectal Cancer Screening 2016 Fecal Occult Blood 2016 Sigmoidoscopy 2016 Diabetes Screening 04/09/2016 04/09/2013 Pneumococcal Vaccine: 50+ (1 of 1 - PCV) 2021 Shingrix Vaccine (1 of 2) 2021 Covid-19 Vaccine (1 - season) 2024 Influenza Vaccine (Season Ended) 2025 Procedures Procedure Name Priority Date/Time Associated Diagnosis Comments BASIC METABOLIC PANEL Routine 04/09/2013 3:55 PM EST Chest pain from Last 3 Months or Most Recently Relevant to Health Maintenance Results * BASIC METABOLIC PNL (04/09/2013 3:55 PM EST) Glucose 88 65 - 100 mg/dL [facility] BUN 11 10 - 25 mg/dL [facility] Creatinine 0.95 0.70 - 1.40 mg/dL [facility] Sodium 138 135 - 146 mmol/L [facility] Potassium 3.8 3.5 - 5.0 mmol/L [facility] Chloride 101 98 - 110 mmol/L [facility] CO2 23 23 - 32 mmol/L [facility] Anion Gap 14 0 - 15 mmol/L [facility] Calcium 9.7 8.5 - 10.5 mg/dL [facility] eGFR- >60 [facility] eGFR-All Other Races >60 . [facility] Comment: eGFR (Estimated GFR) Units of measure: mL/min/1.73 meters squared eGFR is derived from the reexpressed MDRD Study equation using the following parameters: serum creatinine, age, gender and race. The creatinine assay has been calibrated to be traceable to IDMS. An eGFR <60 mL/min/1.73m2 for >3 months is consistent with chronic kidney disease. Refer to KDOQI guidelines for clinical interpretation. Blood specimen (specimen) BLOOD SPECIMEN / Unknown 04/09/2013 3:55 PM EST 04/09/2013 3:57 PM EST us Lenka Mireles MD LABORATORY Final Result [facility] [address] [place] [address] from Last 3 Months or Most Recently Relevant to Health Maintenance Insurance [address] [place] [address] [facility] PPO Care Teams Poured Wall Foreman Relationship Specialty Start Date End Date Isak Hair MD PCP - General Family Medicine 03/13/13
--- NOTE | 2024-11-12 08:02 | XR_ITS ---
The [address] [address] Patient Name: ABELINO PATEL MRN: [id number] date: 1970 Sex: M Assigned Patient Location: RAD Current Patient Location: [facility] Accession/Order Number: [id number] Exam Date: 11/12/2024 09:13 Report Date: 11/12/2024 09:15 At the request of: RASHARD HICKMAN MD Procedure: XR foreign body eye GARIMA ORBITS FOR FOREIGN BODIES - 2 views CLINICAL DATA: Pre-MRI screening for orbital foreign bodies COMPARISON: 03/02/2023 Lo and lateral views were obtained. No orbital radiopaque foreign bodies are seen. The imaged paranasal sinuses are clear. There are no pathologic intracranial calcifications. XR/XR foreign body eye GARIMA IMPRESSION: NO EVIDENCE OF ORBITAL FOREIGN BODIES. Impression dictated by: Lottie De La Vega M.D. 11/12/2024 9:15 AM Dictation Location: [place] [address] Electronically authenticated by: [id number] Y Date: 11/12/2024 09:15
--- NOTE | 2024-11-12 08:02 | MR_ITS ---
[address] [address] Patient Name: ABELINO PATEL MRN: [id number] date: 1970 Sex: M Assigned Patient Location: [facility] Current Patient Location: [facility] Accession/Order Number: [id number] Exam Date: 11/12/2024 12:55 Report Date: 11/12/2024 13:18 At the request of: RASHARD HICKMAN MD Procedure: MR cervical spine wo con MRI Cervical Spine without contrast TECHNIQUE: Multiplanar T1 and T2-weighted imaging of the cervical spine obtained. HISTORY: Numbness of extremities. Bilateral arm and hand numbness. No injury COMPARISON: Plain film cervical spine 10/13/2024 BONY ALIGNMENT: Mild reversal BONY LESION: None CERVICAL CORD: No significant demyelination. SKULL BASE: unremarkable. PREVERTEBRAL SOFT TISSUES: Unremarkable NASOPHARYNGEAL REGION: unremarkable. VERTEBRAL ARTERIES: unremarkable. POSTSURGICAL CHANGES: None CERVICAL SOFT TISSUES: Unremarkable C1-2 LEVEL: Unremarkable C2-3: Mild spondylosis. Patent central canal and neural foramen C3-4: Mild disc space narrowing. Patent central canal and neural foramen C4-5: Moderate spondylosis. Mild diffuse disc bulge. Mild crowding of the cord. No cord edema or hemorrhage. C5-6: Marked disc space narrowing and mild to moderate left parasagittal disc protrusion. Moderate crowding the cord. No cord edema or hemorrhage. Moderate right and mild left neural foraminal narrowing C6-7: Marked spondylosis. Left parasagittal disc extrusion. Moderate crowding the cord. Mild myelomalacia. Moderate right and mild left neural foraminal narrowing C7-T1: Mild spondylosis. Patent central canal and neural foramen. MR/MR cervical spine wo con IMPRESSION: Moderate C6-7 left paracentral disc extrusion. Small moderate C5-6 left parasagittal disc protrusion. Moderate crowding the cord at C5-6 and C6-7 levels. Mild myelomalacia at C6-7.. Impression dictated by: Francisco Mccollum M.D. 11/12/2024 1:18 PM Dictation Location: [place] [address] Electronically authenticated by: [id number] Y Date: 11/12/2024 13:18
== END 2024-11-12 07:59 | disposition home or self-care (01) ==
LOC: RAD 07:58
PROVIDERS: PCP Family Medicine; Visit Provider Family Medicine
DX: R20.0 Anesthesia of skin (principal); M50.223 Other cervical disc displacement at C6-C7 level; M50.222 Other cervical disc displacement at C5-C6 level
CPT/HCPCS: 70030; 72141

== ENCOUNTER 2025-01-21 08:15 | Outpatient (OUT) | payer OTHER, SELFPAY ==
--- NOTE | 2025-01-21 08:22 | MR_ITS ---
[address] [address] Patient Name: ABELINO PATEL MRN: [id number] date: 1970 Sex: M Assigned Patient Location: MRI Current Patient Location: MRI Accession/Order Number: [id number] Exam Date: 01/21/2025 10:01 Report Date: 01/21/2025 10:04 At the request of: JARED BRAGA MD Procedure: MR head/brain wo con EXAMINATION: MRI OF THE BRAIN WITHOUT CONTRAST CLINICAL HISTORY: Signs And Symptoms Involving Nervous System left-sided numbness with cervical pain COMPARISON: None TECHNIQUE: Multiecho, multiplanar imaging of the brain was performed without contrast FINDINGS: No restricted diffusion. Zipper artifact on the T2 FLAIR images. Otherwise the ventricles and sulci normal size and configuration for patient's age. No shift midline structures. Basal cisterns are patent. Brain parenchyma unremarkable in signal intensity. No abnormal GRE signal. Intracranial vascular flow voids are preserved. Mild scattered paranasal sinus mucoperiosteal thickening. MR/MR head/brain wo con IMPRESSION: Essentially unremarkable MRI brain performed without contrast. Impression dictated by: Bo Mancilla M.D. 01/21/2025 10:04 AM Dictation Location: [place] [address] Electronically authenticated by: [id number] Y Date: 01/21/2025 10:04
--- NOTE | 2025-01-21 08:32 | XR_ITS ---
[address] [address] Patient Name: ABELINO PATEL MRN: [id number] date: 1970 Sex: M Assigned Patient Location: MRI Current Patient Location: MRI Accession/Order Number: [id number] Exam Date: 01/21/2025 09:00 Report Date: 01/21/2025 09:00 At the request of: JARED BRAGA MD Procedure: XR foreign body eye GARIMA XR foreign body eye GARIMA 01/21/2025 8:39 AM SIGNS AND SYMPTOMS: ^Screening For MRI PROTOCOL: Frontal and lateral radiographs of the orbits COMPARISON: 11/12/2024 FINDINGS: No abnormal radiopaque foreign body. The visualized orbits are intact. The visualized paranasal sinuses are well aerated. XR/XR foreign body eye GARIMA IMPRESSION: No abnormal radiopaque foreign body. Impression dictated by: Akil Mota M.D. 01/21/2025 9:00 AM Dictation Location: [place] [address] Electronically authenticated by: [id number] Y Date: 01/21/2025 09:00
--- OUTSIDE RECORDS SUMMARY | 2025-01-21 08:33 | XMS_ITS | CCD ---
Author Organization [facility] Care Team Providers Care Collection Systems Technician Name Role Phone MARYLOU ., DR WETZEL Primary Care Unavailable MARYLOU ., DR WETZEL Consulting Unavailable JUVENALY ., DR WETZEL Attending Unavailable JUVENALY ., DR WETZEL Admitting Unavailable ZIEBER, DR PASCUAL Friedman Consulting Unavailable JUVENALY ., DR WETZEL Admitting Unavailable MARYLOU ., DR WETZEL Primary Care Unavailable JUVENALY ., DR WETZEL Consulting Unavailable MARYLOU ., DR WETZEL Attending Unavailable PRUE, DR DEBORAH Ware Consulting Unavailable Rashard Hair Primary Care Physician JOANNE BARTON Attending Unavailable JOANNE BARTON Attending Unavailable Marciano LO Attending Unavailable Rashard Hair Referring Unavailable Rashard Hair MD Primary Care Provider RASHARD HAIR Primary Care Unavailable RADHA ROBERTS Referring Unavailable RASHARD HAIR Primary Care Unavailable KENZIE MATHEWS Attending Unavailable MARQUES BRAGA Attending Unavailable RASHARD HAIR Primary Care Unavailable Allergies Allergy Classification Reported Allergen(s) Allergy Type Date of Onset Reaction(s) Facility (1 source) No Known Medication Allergies; Translations: [No Known Medication Allergies] Propensity to adverse reactions (disorder) [facility] Repository Medications Current Medications Medication Drug Class(es) [...] 0 Start Date: 07/17/21 Status: Ordered Problems Active Problems Problem Classification Problem Date Documented Date Episodic/Chronic Abdominal pain (1 source) Left lower quadrant pain 07-25-2021 Episodic Allergic reactions (1 source) Vesicular eczema 07-17-2021 Episodic Esophageal disorders (1 source) Gastroesophageal reflux disease 07-17-2021 Chronic Inflammatory conditions of male genital organs (2 sources) Epididymitis; Translations: [Epididymitis] Onset: 07-02-2024 Episodic Occlusion or stenosis of precerebral arteries (3 sources) Carotid artery occlusion; Translations: [Occlusion and stenosis of unspecified carotid artery] Onset: 01-03-2025 01-03-2025 Chronic Other connective tissue disease (2 sources) Neurological symptom; Translations: [Other symptoms and signs involving the nervous system] 01-14-2025 Episodic Other connective tissue disease (1 source) Other symptoms and signs involving the nervous system; Translations: [Other symptoms and signs involving the nervous system] Onset: 01-14-2025 Episodic Other lower respiratory disease (4 sources) [...] of colon 07-25-2021 Episodic Residual codes; unclassified (6 sources) Tobacco user; Translations: [Tobacco use] 07-21-2021 Episodic Spondylosis; intervertebral disc disorders; other back problems (3 sources) Cervical disc disorder; Translations: [Cervical disc disorder, unspecified, unspecified cervical region] 07-17-2021 Chronic Spondylosis; intervertebral disc disorders; other back problems (10 sources) Spinal stenosis in cervical region; Translations: [Spinal stenosis, cervical region] Onset: 01-03-2025 12-06-2024 Episodic Unclassified (1 source) Patient encounter status 07-02-2024 Past or Other Problems Problem Classification Problem Date Documented Da te Episodic/Chronic Nonspecific chest pain (5 sources) Chest pain; Translations: [Chest pain, unspecified] Onset: 04-11-2013 06-01-2021 Episodic Results Test Name Value Interpretation Reference Range Facil itana CNOVon 01-14-2025 CNOV Office Visit (NSFRVW ) ABELINO CAGLE ([id number]) 1970 M Date Time Provider Department 01/14/25 9:00 AM MARQUES BRAGA NSFRVW During your visit today, we recorded the following information about you: Pulse Blood pressure Weight Height 74/minute 140/90 106.5 kg 1.753 m Marques Braga MD 01/14/2025 9:23 AM Signed SPINE SURGERY NEW PATIENT PCP: Rashard Hair MD REFERRING PROVIDER: No referring provider defined for this encounter. Medical Decision Making: Problems: Moderate: 2+ stable chronic illnesses Data: Independent interpretation of test from other physician/QHCP Risk: Moderate: Moderate risk from testing/treatment Medical Decision Making Level: 4 - Moderate Assessment/Plan (M50.10) Cervical disc disorder with radiculopathy (primary encounter diagnosis) (R29.818) Other symptoms and signs involving the nervous system 1. Cervical disc disorder with radiculopathy (M50.10) 2. Other symptoms and signs involving the nervous system (R29.818) - MRI of the cervical spine demonstrates mild to moderate disc bulges and congenital canal stenosis; findings are not severe or acute. - Symptoms are intermittent and not associated with significant neurological deficits on exam. - Order MRI of the brain to rule out intracranial causes for leg symptoms. - Conservative management recommended; advised stretching exercises and use of Tylenol or ibuprofen as needed for discomfort. - Discussed that symptoms may resolve spontaneously over approximately 6 months; surgical intervention not indicated at this time. - Follow-up in 6 weeks via virtual visit to review MRI results and reassess symptoms. Patient specific-risk factor flags: Obesity (BMI > 30): Patient's last recorded BMI is > 30 (BMI 34.67 kg/m2). Obesity is associated with higher risk of rodrigo-operative complications for spine surgery patients. Importance of weight loss was discussed with patient and plan for patient to increase exercise and monitor caloric intake to maintain a healthy weight was discussed. Actions Based on the Above Information: Discussed weight management Subjective Chief Complaint: History of Present Illness: Abelino Cagle is a 54-year-old male presenting with sudden onset of left arm and leg numbness and tingling. Abelino reports that a few months ago, he woke up with sudden numbness in his left arm, which has since recurred multiple times. Initially, he attributed the numbness to sleeping on his arm, but later episodes occurred without pressure on the arm. The numbness extends down to his fingers, primarily affecting the middle fingers, and is accompanied by tingling. He also experiences tingling in his left leg, described as a sensation of the leg falling asleep, which extends to the foot. He does not report numbness in the right side, trunk, or face. He notes that the numbness and tingling are intermittent and not present every day. He does not identify specific triggers for these symptoms and does not report any issues with hand function, such as dropping objects or difficulty with fine motor tasks. He does not endorse any vision problems, double vision, or facial numbness. He was not feeling ill when the symptoms began. Recently, he has noticed a crunching sound when turning his neck to the left and a sensation of pressure at the back of his head, described as feeling like somebody's got their hand on the back of my head. He reports stiffness in the neck, which has become more noticeable lately. He has a history of lower back pain but does not report pain radiating down the arms. He has not undergone any spine surgery. 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 He has not had any imaging of the brain. Eyes: (-) visual disturbance, (-) blurry vision, (-) diplopia Neck: (+) neck stiffness, (+) neck pressure, (+) neck crepitus Musculoskeletal: (+) low back pain, (-) arm pain Neurological: (+) left arm paresthesia, (+) left leg paresthesia, (-) trunk numbness, (-) facial numbness, (-) hand weakness Questionnaire Generated HPI Possible Spine-Related Symptoms: Symptom Onset: Symptom Location(s): Symptom Laterality: Aggravating Factors: Alleviating Factors: Non-Surgical Therapies Tried: Prior Spine Surgery(s): Image annotated by patient with symptom distribution: No annotated images are attached to the encounter. I, Marques Braga MD , have reviewed the above patient-reported information and have reviewed it with the patient. Major Risk Factors Notable surgical risk factors: Smoking status: Former BMI:34.67 kg/m2. Patient's BMI would meet criteria for obesity given BMI >= 30 Obesity Moderate Risk BMI: 34.67 kg/m2 High: BMI > 40 Moderate: BMI 30-40 Normal: BMI < 30 Diabetes normal High: A1C > 8 Moderate: A1C 7-8 Normal (more content not included)... [facility] ABELINO CAGLE ([id number]) 1970 M Date Time Provider Department 01/03/25 9:30 AM KENZIE MATHEWS [facility]PS[facility] During your visit today, we recorded the following information about you: Pulse Blood pressure Weight 85/minute 137/91 105 kg Kenzie Mathews PA-C 01/03/2025 9:57 AM Signed SPINE SURGERY OUTPATIENT CONSULT This is an in-person visit. SERVICE DATE: 01/03/2025 PCP: Rashard Hair MD REFERRING PROVIDER: No referring provider defined for this encounter. Consult requested for an opinion regarding the evaluation and treatment of cervical myelopathy. My final impression and recommendations will be communicated back to the requesting physician by way of the shared medical record or letter via [place] mail. SUBJECTIVE Abelino Cagle is a 54 year old male CHIEF COMPLAINT: left arm numbness, left leg numbness HISTORY OF PRESENT ILLNESS PRECIPITATING EVENT: None DURATION OF SYMPTOMS: Greater Than 1 Year Abelino Cagle is a 54-year-old male presenting for evaluation of numbness and tingling in the arm and leg. Abelino reports experiencing numbness and tingling in the arm and leg for approximately one month. The symptoms began suddenly without any preceding trauma or falls. Initially, the numbness was localized to the arm and was most noticeable during sleep, leading Abelino to suspect it was due to sleeping position. However, the numbness persisted even when not lying on the arm. Over time, the symptoms have progressed to include tingling that starts in the neck and radiates down the back and leg. Abelino can trace the path of the tingling, which consistently follows the same route. The arm occasionally goes completely numb, but the leg has not experienced full numbness, only tingling. The numbness in the arm initially extended to the fingers but has recently stopped doing so. Abelino does not report any changes in symptoms with different head positions. Abelino also reports a crunching sensation and increased stiffness in the neck, particularly when turning to the left. Abelino does not endorse any difficulty with hand dexterity, such as writing or buttoning a shirt. Additionally, Abelino experiences episodes of lightheadedness a couple of times a day, which occur while standing still and are not associated with changes in position. No workup has been done for these episodes. Abelino has a history of smoking but has since quit. There is no history of diabetes. ACTIVE PROBLEM LIST Tobacco Abuse Chest Pain PAST MEDICAL HISTORY Diagnosis Date Tobacco abuse quit 2007 PAST SURGICAL HISTORY Procedure Laterality Date TONSILLECTOMY HX 1999 FAMILY HISTORY Problem Relation Age of Onset None Mother Social History Tobacco Use Smoking status: Former Current packs/day: 0.00 Types: Cigarettes Quit date: 04/09/2008 Years since quittin.7 Substance Use Topics Alcohol use: Yes Drug use: No ALLERGIES No Known Allergies MEDICATIONS: No prescriptions on file. REVIEW OF SYSTEMS: GENERAL: No weight loss or malaise MUSCULOSKELETAL: see HPI NEURO: No history of headaches, syncope, paralysis, seizures or tremors Patient Entered Questionnaires PROMIS Score Percentiles Percentiles provide an indication of how the patient's score ranks in relation to the general population. Higher percentile rankings indicate better function/quality of life. 50th percentile is the average of the general population and indicates half of respondents had a worse score. Depression Screenin04/09/2013 PHQ-9 Score 0 04/09/2013 PHQ-9 Self-harm Question Question 9 Not at all PHQ-9 Self-Harm (Item 9) response options: 0 Not at all 1 Several days 2 More than half the days 3 Nearly every day PHQ-9 Levels: 0-4 No to mild depression 5-9 Mild depression 10-14 Moderate depression 15-19 Moderately severe depression 20-27 Severe depression OBJECTIVE: PHYSICAL EXAM BP 137/91 Pulse 85 Wt 105 kg (231 lb 7.7 oz) SpO2 98% BMI 34.18 kg/m? GENERAL APPEARANCE: Well nourished, well developed, and no apparent distress. NEURO PSYCH: Patient oriented to person, place, and time. Mood pleasant. Benign affect. VISUAL INSPECTION CERVICAL: WNL THORACIC: WNL LUMBAR: WNL PALPATION: SPINOUS PROCESS: No pain. PARASPINALS: No pain. MUSCLE BULK: Normal and symmetrical in the upper AND lower extremities. MUSCLE TONE: Normal. MOTOR: 5/5 in all muscle groups. SENSORY: Normal sensory exam GAIT: Normal. REFLEXES: +2 to bilateral U/L extremities. LONG TRACT SIGNS: No Hoffmans. STRAIGHT LEG TEST: Contralateral: Negative. L'HERMITTES SIGN: Negative. SPURLING'S TEST: Negative. NEURO TESTS: None DATA REVIEW [facility] and outside records independently reviewed ASSESSMENT/PLAN (M48.02) Spinal stenosis of cervical region (primary encounter diagnosis) (I65.29) Occlusion and stenosis o (more content not included)... Normal [facility] XR CERV OTHER 4V AP/LAT/FLX/ EXTon 01-03-2025 IMPRESSION: Mild cervical spondylosis, most pronounced at C5-C6. Health And Safety Consultant: PSCB Transcribe Date/Time: Jan 03 2025 9:20A Dictated by : MOUNIKA SALTER MD This examination was interpreted and the report reviewed and electronically signed by: MOUNIKA SALTER MD on Jan 03 2025 9:21AM [facility] DIVISION OF RADIOLOGY * * *Final Report* * * DATE OF EXAM: Jan 03 2025 8:38AM CRX [id number] - XR CERVICAL 4V AP/LAT/FLX/EXT / PROCEDURE REASON: Cervical stenosis of spinal canal * * * * Physician Interpretation * * * * EXAMINATION / TECHNIQUE: XR CERVICAL 4V AP/LAT/FLX/EXT PATIENT/TECHNOLOGIST PROVIDED HISTORY: Chronic neck pain that radiates into Left upper extremity , difficulty rotating head to the Left CLINICAL INFORMATION ( PROVIDED BY ORDERING CLINICIAN) : Cervical stenosis of spinal canal COMPARISON: 10/13/2024, 11/12/2024 RESULT: Counting reference: Craniocervical junction. Anatomic Variants: None. Straightening/slight reversal of usual cervical lordosis. No significant spondylolisthesis or curvature. No evidence of dynamic instability on flexion-extension views. No acute fracture or vertebral body height loss. Mild degenerative disc disease at C5-C6 characterized by disc height loss and small endplate osteophytes. Mild to moderate uncovertebral joint arthropathy at C5-C6 also. Minimal disc height loss and uncovertebral joint spurring at C4-C5. Tiny anterior endplate osteophytes at C6-C7. DIVISION OF RADIOLOGY Provider, [facility] - 01/03/2025 * * *Final Report* * * DATE OF EXAM: Jan 03 2025 8:38AM CRX [id number] - XR CERVICAL 4V AP/LAT/FLX/EXT / PROCEDURE REASON: Cervical stenosis of spinal canal * * * * Physician Interpretation * * * * EXAMINATION / TECHNIQUE: XR CERVICAL 4V AP/LAT/FLX/EXT PATIENT/TECHNOLOGIST PROVIDED HISTORY: Chronic neck pain that radiates into Left upper extremity , difficulty rotating head to the Left CLINICAL INFORMATION ( PROVIDED BY ORDERING CLINICIAN) : Cervical stenosis of spinal canal COMPARISON: 10/13/2024, 11/12/2024 RESULT: Counting reference: Craniocervical junction. Anatomic Variants: None. Straightening/slight reversal of usual cervical lordosis. No significant spondylolisthesis or curvature. No evidence of dynamic instability on flexion-extension views. No acute fracture or vertebral body height loss. Mild degenerative disc disease at C5-C6 characterized by disc height loss and small endplate osteophytes. Mild to moderate uncovertebral joint arthropathy at C5-C6 also. Minimal disc height loss and uncovertebral joint spurring at C4-C5. Tiny anterior endplate osteophytes at C6-C7. IMPRESSION IMPRESSION: Mild cervical spondylosis, most pronounced at C5-C6. Health And Safety Consultant: MACIEL Transcribe Date/Time: Jan 03 2025 9:20A Dictated by : MOUNIKA SALTER MD This examination was interpreted and the report reviewed and electronically signed by: MOUNIKA SALTER MD on Jan 03 2025 9:21AM EST [facility] Radiology Study observation (narrative) [facility] XR CERV OTHER 4V AP/LAT/FLX/ EXTOrdered By: [facility] Provider on 01-03-2025 [facility] XR CERVICAL 4V AP/LAT/FLX/EX Ton 01-03-2025 XR CERVICAL 4V AP/LAT/FLX/EXT * * *Final Report* * * DATE OF EXAM: Jan 03 2025 8:38AM CRX [id number] - XR CERVICAL 4V AP/LAT/FLX/EXT / PROCEDURE REASON: Cervical stenosis of spinal canal * * * * Physician Interpretation * * * * EXAMINATION / TECHNIQUE: XR CERVICAL 4V AP/LAT/FLX/EXT PATIENT/TECHNOLOGIST PROVIDED HISTORY: Chronic neck pain that radiates into Left upper extremity , difficulty rotating head to the Left CLINICAL INFORMATION ( PROVIDED BY ORDERING CLINICIAN) : Cervical stenosis of spinal canal COMPARISON: 10/13/2024, 11/12/2024 RESULT: Counting reference: Craniocervical junction. Anatomic Variants: None. Straightening/slight reversal of usual cervical lordosis. No significant spondylolisthesis or curvature. No evidence of dynamic instability on flexion-extension views. No acute fracture or vertebral body height loss. Mild degenerative disc disease at C5-C6 characterized by disc height loss and small endplate osteophytes. Mild to moderate uncovertebral joint arthropathy at C5-C6 also. Minimal disc height loss and uncovertebral joint spurring at C4-C5. Tiny anterior endplate osteophytes at C6-C7. IMPRESSION: Mild cervical spondylosis, most pronounced at C5-C6. Health And Safety Consultant: MACIEL Transcribe Date/Time: Jan 03 2025 9:20A Dictated by : MOUNIKA SALTER MD This examination was interpreted and the report reviewed and electronically signed by: MOUNIKA SALTER MD on Jan 03 2025 9:21AM EST [id number] Normal [facility] Urology Office/Clinic Noteon 07-02-2024 Urology Office/Clinic [...] f/u prn. Follow-up With When Contact Information NEWTON GALVIN, Marciano Friedman, URL Only if needed [facility] [address], [place] [address] [phone] Additional Instructions: Patient Education Prostate Cancer Screening Stephanie Barney, personally scribed for Dr. Lo on 07/02/2024 12:34:58. . Documentation recorded by the scribeStephanie, accurately reflects the services(s) I performed and [...] Dipstick: Negative (more content not included)... Normal [facility] Comment on above: Result Comment: Elec tronically Signed By: Marciano LO MD\.br\Date and Time Signed: 07/02/24 12:36 EST\.br\Electronically Co-Signed By: Stephanie Hayes.br\Date and Time Co-Signed: 07/02/24 12:[address] [...] by: PASCUAL LEE Date: 2022-08-26 13:48 Normal [facility] XR RIBS LT PA Skyler 3 XR [...] by: DEBORAH ORR Date: 2022-07-20 07:43 Normal [facility] A1C with Estimated Average G alethea 02-28-2021 Glucose [Mass/Vol] 108 mg/dL Normal [facility] Comment on above: Result Comment: PERF ORMED BY: [place] [address] PATHOLOGIST CANTEEN MANAGER OANH TOLBERT M.D. Performed By: #### A 1C WTH eA, LIPID, URIC, CMP, TEST, PSAS, CBC #### [address] #### INSULIN #### [facility] , HbA1c (Bld) [Mass fraction] 5.4 % Normal 4.3-5.6 [facility] Comment on above: Result Comment: Incr eased risk for diabetes: 5.7 - 6.4 diabetes: >6.4 glycemic control for adults with diabetes: <7.0 Performed By: #### A 1C WTH eA, LIPID, URIC, CMP, TEST, PSAS, CBC #### [address] #### INSULIN #### [facility] , Complete Blood Count Auto Di ffon 02-28-2021 Basophils (Bld) [#/Vol] 0.1 10*3/uL Normal 0.0-0.2 [facility] Comment on above: Result Comment: PERF ORMED BY: [place] [address] PATHOLOGIST CANTEEN MANAGER OANH TOLBERT M.D. Performed By: #### A 1C WTH eA, LIPID, URIC, CMP, TEST, PSAS, CBC #### [address] #### INSULIN #### [facility] , Basophils/100 WBC (Bld) 0.9 % Normal . [facility] Comment on above: Performed By: #### A 1C WTH eA, LIPID, URIC, CMP, TEST, PSAS, CBC #### [place] [address] [place] #### INSULIN #### [facility] , Eosinophils (Bld) [#/Vol] 0.1 10*3/uL Normal 0.0-0.45 [facility] Comment on above: Performed By: #### A 1C WTH eA, LIPID, URIC, CMP, TEST, PSAS, CBC #### [address] #### INSULIN #### [facility] , Eosinophils/100 WBC (Bld) 2.0 % Normal . [facility] Comment on above: Performed By: #### A 1C WTH eA, LIPID, URIC, CMP, TEST, PSAS, CBC #### [place] [address] [place] #### INSULIN #### [facility] , Erythrocyte distribution width (RBC) [Ratio] 13.5 % Normal 12.0-14.8 [facility] Comment on above: Performed By: #### A 1C WTH eA, LIPID, URIC, CMP, TEST, PSAS, CBC #### [place] [address] [place] #### INSULIN #### [facility] , Hematocrit (Bld) [Volume fraction] 44.8 % Normal 38.8-50.0 [facility] Comment on above: Performed By: #### A 1C WTH eA, LIPID, URIC, CMP, TEST, PSAS, CBC #### [place] [address] [place] #### INSULIN #### [facility] , Hemoglobin (Bld) [Mass/Vol] 15.3 g/dL Normal 13.0-17.0 [facility] Comment on above: Performed By: #### A 1C [facility] eA, LIPID, URIC, CMP, TEST, PSAS, CBC #### [address] #### INSULIN #### [facility] , Lymphocytes (Bld) [#/Vol] 1.6 10*3/uL Normal 1.00-4.8 [facility] Comment on above: Performed By: #### A 1C [facility] eA, LIPID, URIC, CMP, TEST, PSAS, CBC #### [place] [address] [place] #### INSULIN #### [facility] , Lymphocytes/100 WBC (Bld) 27.5 % Normal . [facility] Comment on above: Performed By: #### A 1C [facility] eA, LIPID, URIC, CMP, TEST, PSAS, CBC #### [address] #### INSULIN #### [facility] , MCH (RBC) [Entitic mass] 31.5 pg Normal 27.5-35.2 [facility] Comment on above: Performed By: #### A 1C [facility] eA, LIPID, URIC, CMP, TEST, PSAS, CBC #### [place] [address] [place] #### INSULIN #### [facility] , MCV (RBC) [Entitic vol] 92.1 fL Normal 83.5-101 [facility] Comment on above: Performed By: #### A 1C [facility] eA, LIPID, URIC, CMP, TEST, PSAS, CBC #### [place] [address] [place] #### INSULIN #### [facility] , Mean Corpuscular HGB Conc 34.2 g/dL Normal 32.5-35.6 [facility] Comment on above: Performed By: #### A 1C WTH eA, LIPID, URIC, CMP, TEST, PSAS, CBC #### [facility] [address] [place] [address] [place] #### INSULIN #### [facility] , Monocytes (Bld) [#/Vol] 0.5 10*3/uL Normal 0.0-0.8 [facility] Comment on above: Performed By: #### A 1C WTH eA, LIPID, URIC, CMP, TEST, PSAS, CBC #### [place] [address] [place] #### INSULIN #### [facility] , Monocytes/100 WBC (Bld) 8.0 % Normal . [facility] Comment on above: Performed By: #### A 1C WTH eA, LIPID, URIC, CMP, TEST, PSAS, CBC #### [facility] [address] [place] [address] [place] #### INSULIN #### [facility] , Neutrophils (Bld) [#/Vol] 3.7 10*3/uL Normal 1.8-7.7 [facility] Comment on above: Performed By: #### A 1C WTH eA, LIPID, URIC, CMP, TEST, PSAS, CBC #### [place] [address] [place] #### INSULIN #### [facility] , Neutrophils/100 WBC (Bld) 61.6 % Normal . [facility] Comment on above: Performed By: #### A 1C WTH eA, LIPID, URIC, CMP, TEST, PSAS, CBC #### [facility] [address] [place] [address] [place] #### INSULIN #### [facility] , Nucleated RBC/100 WBC (Bld) [Ratio] 0.0 % Normal 0-0.5 [facility] Comment on above: Performed By: #### A 1C WTH eA, LIPID, URIC, CMP, TEST, PSAS, CBC #### [place] [address] [place] #### INSULIN #### [facility] , Platelet mean volume (Bld) [Entitic vol] 9.6 fL Normal 6.6-10.1 [facility] [place] Comment on above: Performed By: #### A 1C WTH eA, LIPID, URIC, CMP, TEST, PSAS, CBC #### [facility] [address] [place] [address] [place] #### INSULIN #### [facility] , Platelets (Bld) [#/Vol] 242 10*3/uL Normal 150-450 [facility] [place] Comment on above: Performed By: #### A 1C WTH eA, LIPID, URIC, CMP, TEST, PSAS, CBC #### [address] #### INSULIN #### [facility] , RBC (Bld) [#/Vol] 4.87 10*6/uL Normal 3.90-5.60 [facility] Comment on above: Performed By: #### A 1C WTH eA, LIPID, URIC, CMP, TEST, PSAS, CBC #### [address] #### INSULIN #### [facility] , WBC (Bld) [#/Vol] 6.0 10*3/uL Normal 4.5-11.0 [facility] Comment on above: Performed By: #### A 1C WTH eA, LIPID, URIC, CMP, TEST, PSAS, CBC #### [facility] [address] [place] [address] [place] #### INSULIN #### [facility] , Comprehensive Metabolic Pane france 02-28-2021 Albumin [Mass/Vol] 4.4 g/dL Normal 3.2-5.5 [facility] Comment on above: Performed By: #### A 1C WTH eA, LIPID, URIC, CMP, TEST, PSAS, CBC #### [facility] [address] [place] [address] [place] #### INSULIN #### [facility] , Albumin/Globulin [Mass ratio] 1.7 {ratio} Normal [facility] [place] Comment on above: Performed By: #### A 1C WTH eA, LIPID, URIC, CMP, TEST, PSAS, CBC #### [facility] [address] [place] [address] [place] #### INSULIN #### [facility] , ALP [Catalytic activity/Vol] 70 U/L Normal 32-92 [facility] [place] Comment on above: Performed By: #### A 1C WT eA, LIPID, URIC, CMP, TEST, PSAS, CBC #### [address] #### INSULIN #### [facility] , ALT [Catalytic activity/Vol] 36 U/L Normal 10-60 [facility] [place] Comment on above: Performed By: #### A 1C WTH eA, LIPID, URIC, CMP, TEST, PSAS, CBC #### [facility] [address] [place] [address] [place] #### INSULIN #### [facility] , AST [Catalytic activity/Vol] 26 U/L Normal 10-42 [facility] [place] Comment on above: Performed By: #### A 1C WTH eA, LIPID, URIC, CMP, TEST, PSAS, CBC #### [facility] [address] [place] [address] [place] #### INSULIN #### [facility] , Bilirubin [Mass/Vol] 1.0 mg/dL Normal 0.3-1.2 [facility] Comment on above: Performed By: #### A 1C WTH eA, LIPID, URIC, CMP, TEST, PSAS, CBC #### [facility] [address] [place] [address] [place] #### INSULIN #### [facility] , Calcium [Mass/Vol] 9.6 mg/dL Normal 8.2-10.2 [facility] Comment on above: Performed By: #### A 1C WTH eA, LIPID, URIC, CMP, TEST, PSAS, CBC #### [facility] [address] [place] [address] [place] #### INSULIN #### [facility] , Chloride [Moles/Vol] 104 mmol/L Normal 95-114 [facility] Comment on above: Performed By: #### A 1C WTH eA, LIPID, URIC, CMP, TEST, PSAS, CBC #### [facility] [address] [place] [address] [place] #### INSULIN #### [facility] , CO2 [Moles/Vol] 26.3 mmol/L Normal 22.0-30.0 [facility] Comment on above: Performed By: #### A 1C WT eA, LIPID, URIC, CMP, TEST, PSAS, CBC #### [facility] [address] [place] [address] [place] #### INSULIN #### [facility] , Creatinine [Mass/Vol] 1.29 mg/dL High 0.64-1.27 [facility] [place] Comment on above: Performed By: #### A 1C WTH eA, LIPID, URIC, CMP, TEST, PSAS, CBC #### [facility] [address] [place] [address] [place] #### INSULIN #### [facility] , Estimated GFR ( Roberta > 60 [facility] Comment on above: Result Comment: GFR estimated reference range: According to KDOQI guidelines, <60 ml/min/1.73m2 is sufficient to diagnose a patient with chronic kidney disease. Performed By: #### A 1C WTH eA, LIPID, URIC, CMP, TEST, PSAS, CBC #### [place] [address] [place] #### INSULIN #### [facility] , Estimated GFR (Non- Am 59 [facility] Comment on above: Performed By: #### A 1C WTH eA, LIPID, URIC, CMP, TEST, PSAS, CBC #### [facility] [address] [place] [address] [place] #### INSULIN #### [facility] , Globulin (S) [Mass/Vol] 2.6 g/dL Normal [facility] [place] Comment on above: Performed By: #### A 1C WTH eA, LIPID, URIC, CMP, TEST, PSAS, CBC #### [place] [address] [place] #### INSULIN #### [facility] , Glucose [Mass/Vol] 100 mg/dL Normal 70-100 [facility] Comment on above: Result Comment: [facility] Glucose Reference Range is dependent on time and content of last meal. Glucose of more than 200 mg/dL in a nonstressed, ambulatory subject supports the diagnosis of Diabetes Mellitus. ADA recommended reference range Performed By: #### A 1C WTH eA, LIPID, URIC, CMP, TEST, PSAS, CBC #### [place] [address] [place] #### INSULIN #### [facility] , Potassium [Moles/Vol] 4.5 mmol/L Normal 3.5-5.1 [facility] [place] Comment on above: Performed By: #### A 1C WTH eA, LIPID, URIC, CMP, TEST, PSAS, CBC #### [facility] [address] [place] [address] [place] #### INSULIN #### [facility] , Protein [Mass/Vol] 7.0 g/dL Normal 6.1-7.9 [facility] Comment on above: Performed By: #### A 1C WTH eA, LIPID, URIC, CMP, TEST, PSAS, CBC #### [place] [address] [place] #### INSULIN #### [facility] , Sodium [Moles/Vol] 138 mmol/L Normal 136-146 [facility] Comment on above: Performed By: #### A 1C WTH eA, LIPID, URIC, CMP, TEST, PSAS, CBC #### [facility] [address] [place] [address] #### INSULIN #### [facility] , Urea nitrogen [Mass/Vol] 9 mg/dL Normal 9-23 [facility] [place] Comment on above: Performed By: #### A 1C WTH eA, LIPID, URIC, CMP, TEST, PSAS, CBC #### [facility] [address] [place] [address] #### INSULIN #### [facility] , Insulinon 02-28-2021 Insulin 14.2 u[iU]/mL Normal 2.6-24.9 [facility] [place] Comment on above: Result Comment: Perf ormed at: - [facility] [address] [id number] Project Scientist: Tung Friedman PhD, Phone: [phone] PERFORMED BY: [place] [address] PATHOLOGIST CANTEEN MANAGER OANH TOLBERT M.D. Performed By: #### A 1C WTH eA, LIPID, URIC, CMP, TEST, PSAS, CBC #### [address] #### INSULIN #### [facility] , Lipid Panelon 02-28-2021 Cholesterol [Mass/Vol] 195 mg/dL Normal 140-200 [facility] [place] Comment on above: Result Comment: Chol less than 200 mg/dl low risk Chol 201-239 mg/dl borderline risk Chol 240 mg/dl and greater high risk Performed By: #### A 1C WTH eA, LIPID, URIC, CMP, TEST, PSAS, CBC #### [address] #### INSULIN #### [facility] , Cholesterol in HDL [Mass/Vol] 38 mg/dL Normal 29-71 [facility] [place] Comment on above: Result Comment: HDL CHOL ATP-III CLASSIFICATION Cardiovascular Risk HDL > or equal to 60 mg/dL LOW HDL < 40 mg/dL HIGH Performed By: #### A 1C WTH eA, LIPID, URIC, CMP, TEST, PSAS, CBC #### [address] #### INSULIN #### [facility] , Cholesterol.total/Ch olesterol in HDL [Mass ratio] 5.1 {ratio} Normal <5.0 [facility] [place] Comment on above: Result Comment: PERF ORMED BY: [place] [address] PATHOLOGIST CANTEEN MANAGER OANH TOLBERT M.D. Performed By: #### A 1C WTH eA, LIPID, URIC, CMP, TEST, PSAS, CBC #### [address] #### INSULIN #### [facility] , LDL Cholesterol,Calculat ed 138 mg/dL High 0-100 [facility] [place] Comment on above: Result Comment: LDL ATP III CLASSIFICATION LDL less than 100 mg/dL Optimal LDL 100-129 mg/dL Near or above optimal LDL 130-159 mg/dL Borderline high LDL 160-189 mg/dL High LDL greater than 189 mg/dL Very high Performed By: #### A 1C WTH eA, LIPID, URIC, CMP, TEST, PSAS, CBC #### [place] [address] [place] #### INSULIN #### [facility] , Triglyceride w/Reflex 96 mg/dL Normal 35-149 [facility] [place] Comment on above: Result Comment: TRIG ATP III CLASSIFICATION TRIG less than 150 mg/dL Normal TRIG 150-199 mg/dL Borderline high TRIG 200-500 mg/dL High TRIG greater than 500 mg/dL Very high Standard traceable to the Center for Disease Conrtrol and Prevention (CDC) test method. Performed By: #### A 1C WTH eA, LIPID, URIC, CMP, TEST, PSAS, CBC #### [place] [id number] [place] #### INSULIN #### [facility] , VLDL CHOLESTEROL 19 mg/dL Normal [facility] Comment on above: Performed By: #### A 1C WTH eA, LIPID, URIC, CMP, TEST, PSAS, CBC #### [facility] [address] [place] [address] #### INSULIN #### [facility] , PSA Screen (Yearly Only)on 0 02-28-2021 PSA Screen (Yearly Only) 1.120 ng/mL Normal 0.000-4.000 [facility] [place] Comment on above: Order Comment: Is pa tient <50 yrs? Medicare does not pay <50.: N What is the date of the last PSA Screen?: U OR...The date Patient is eligible for PSA Screen?: U Is Medicare the insurance?: U Did you verify eligibility (Dx Time) check TestViewGp: YES TO ALL Result Comment: PERF ORMED BY: [place] [address] PATHOLOGIST CANTEEN MANAGER OANH TOLBERT M.D. Performed By: #### A 1C WTH eA, LIPID, URIC, CMP, TEST, PSAS, CBC #### [address] #### INSULIN #### [facility] , Testosteroneon 02-28-2021 Testosterone 4.60 ng/mL Normal 1.75-7.81 [facility] [place] Comment on above: Result Comment: PERF ORMED BY: [place] [address] PATHOLOGIST CANTEEN MANAGER OANH TOLBERT M.D. Performed By: #### A 1C WTH eA, LIPID, URIC, CMP, TEST, PSAS, CBC #### [facility] [address] [place] [address] #### INSULIN #### [facility] , Uric Acidon 02-28-2021 Urate [Mass/Vol] 8.7 mg/dL High 2.6-7.2 [facility] Comment on above: Performed By: #### A 1C WT eA, LIPID, URIC, CMP, TEST, PSAS, CBC #### [address] #### INSULIN #### [facility] , Vital Signs Date Time Vital Sign Value Performing Clinician Facility 01-14-2025 08:13-0400 Body height 175.3 cm Marques Braga MD Work Phone: [facility] 01-14-2025 08:13-0400 Body mass index (BMI) [Ratio] 34.67 kg/m2 Marques Braga MD Work Phone: [facility] 01-14-2025 08:13-0400 Body weight 106.5 kg Marques Braga MD Work Phone: [facility] 01-14-2025 08:13-0400 Diastolic blood pressure 90 mm[Hg] Marques Braga MD Work Phone: [facility] 01-14-2025 08:13-0400 Heart rate 74 /min Marques Braga MD Work Phone: [facility] 01-14-2025 08:13-0400 SaO2% (BldA) [Mass fraction] 96 % Marques Braga MD Work Phone: [facility] 01-14-2025 08:13-0400 Systolic blood pressure 140 mm[Hg] Marques Braga MD Work Phone: [facility] 01-03-2025 09:25-0400 Body mass index (BMI) [Ratio] 34.18 kg/m2 Kenzie Ernstus PA-C Work Phone: [facility] 01-03-2025 09:25-0400 Body weight 105 kg Kenzie Kleverus PA-C Work Phone: [facility] 01-03-2025 09:25-0400 Diastolic blood pressure 91 mm[Hg] Kenziestephanie Ernstus PA-C Work Phone: [facility] Comment on above: provider notified 01-03-2025 09:25-0400 Heart rate 85 /min Kenzie Ernstus PA-C Work Phone: [facility] 01-03-2025 09:25-0400 SaO2% (BldA) [Mass fraction] 98 % Kenzie Ernstus PA-C Work Phone: [facility] 01-03-2025 09:25-0400 Systolic blood pressure 137 mm[Hg] Kenzie Ernstus PA-C Work Phone: [facility] Comment on above: provider notified 12-06-2024 10:13-0400 Body height 175.3 cm None (Historical) [facility] 12-06-2024 10:13-0400 Body mass index (BMI) [Ratio] 33.97 kg/m2 None (Historical) [facility] 12-06-2024 10:13-0400 Body weight 104.33 kg None (Historical) [facility] 07-02-2024 11:28-0500 Blood Pressure Location Marciano LO [facility] 07-02-2024 11:28-0500 Body temperature 97.7 [degF] Marciano LO [facility] 07-02-2024 11:28-0500 Diastolic blood pressure 86 mm[Hg] Marciano LO [facility] 07-02-2024 11:28-0500 Heart rate 74 /min Marciano LO [facility] 07-02-2024 11:28-0500 Systolic blood pressure 128 mm[Hg] Marciano LO [facility] Encounters Encounter Date Encounter Type Care Provider Facility Start: 07-11-2025 ambulatory JOANNE Yusuf ty:[facility] Start: 07-05-2025 ambulatory JOANNE Dialloi ty:[facility] Start: 01-14-2025 End: 01-14-2025 Patient encounter procedure Marques Braga MD Work Phone: Neurosurgery Comment on above: Cervical disc disord er with radiculopathy (Primary Dx); Other symptoms and signs involving the nervous system Start: 01-14-2025 End: 01-14-2025 ambulatory MARQUES BRAGA Facility:[facility] Start: 01-03-2025 End: 01-03-2025 Patient encounter procedure Kenzie Mathews PA-C Work Phone: Spine Surgery Comment on above: Spinal stenosis of c ervical region (Primary Dx); Occlusion and stenosis of unspecified carotid artery Start: 01-03-2025 End: 01-03-2025 ambulatory RASHARD HAIR Facility:[facility] Start: 01-03-2025 End: 01-03-2025 Subsequent hospital visit by physician Robert Martinez Bl Work Phone: Radiology Comment on above: Cervical stenosis of spinal canal [M48.02] Start: 12-05-2024 End: 12-05-2024 Transcribe Orders Rashard Hair MD Work Phone: Referring Physician Comment on above: Cervical disc disord er (Primary Dx) Start: 12-03-2024 End: 12-06-2024 Chart abstracting None (Historical) Neurology Start: 07-02-2024 End: 07-02-2024 ambulatory Marciano LO Facility: [facility] Start: 07-02-2024 End: 07-02-2024 Patient encounter procedure Marciano LO [facility] Start: 06-21-2024 ambulatory JOANNE BARTON Facility :[facility] Start: 08-26-2022 End: 08-27-[address] RASHARD HAIR . Facility: Start: 07-19-2022 End: 07-20-[address] RASHARD HAIR . Facility:[facility] Procedures Date Procedure Procedure Detail Performing Clinician Start: 01-03-2025 Radex spine cervical 4 or 5 views Radha Roberts PA-C Work Phone: Start: 06-06-2018 Partial meniscectomy of knee Marciano LO Comment on above: left Start: 07-07-2016 Colonoscopy [facility]iano [facility] Start: 06-06-2010 Chondrectomy of semi lunar cartilage of knee Marciano LO History of hernia repair [facility] Vasectomy Marciano LO Plan of Treatment Date Care Activity Detail Author Start: 02-06-2025 End: 02-06-2025 Patient encounter procedure 02/06/2025 9:00 AM EDT Office Visit Neurosurgery [address] [place], [place] [id number] Marques Braga MD [address] [place] [address] Kenzie Mathews PA-C Please call to schedule with first available cervical surgeon. Thank you Neurosurgery Comment on above: Kenzie Mathews PA-C Please call to schedule with first available cervical surgeon. Thank you Start: 02-04-2025 Influenza vaccination Influenza Vacc ine (#1) [facility] Start: 02-05-2024 Covid-19 Vaccine ( season) Covid-19 Vaccine ( season) [facility] Start: 2021 Pneumococcal Vaccine : 50+ (1 of 1 - PCV) Pneumococcal Vaccine: 50+ (1 of 1 - PCV) [facility] Start: 2021 Shingrix Vaccine (1 of 2) Shingrix Vaccine (1 of 2) [facility] Start: 04-09-2016 Diabetes Screening Diabetes Screenin g [facility] Start: 2016 Screening for malign ant neoplasm of colon [facility] Start: 2006 Lipid panel Lipid Screening [facility] Start: 1990 Hepatitis B Vaccine (1 of 3 - 19+ 3-dose series) Hepatitis B Vaccine (1 of 3 - 19+ 3-dose series) [facility] Start: 1990 Urine microalbumin profile DTaP,Tdap,Td Vaccine (1 - Tdap) [facility] Start: 1989 Anxiety Screening Anxiety Screening [facility] Start: 1989 Depression Screening Depression Scre ening [facility] Start: 1989 Hepatitis C screening Hepatitis C Sc reening [facility] Start: 1989 HIV screening HIV Screening [facility] End: 02-02-2026 CT Cervical spine WO contrast CT CERVICAL SPINE WO IVCON Radiology Routine Spinal stenosis of cervical region 1 Occurrences starting 01/03/2025 until 02/02/2026 [facility] Work Phone: Comment on above: 1 Occurrences starti ng 01/03/2025 until 02/02/2026 End: 02-02-2026 MR Brain WO contrast MRI BRAIN WO IVCON Radiology Routine Occlusion and stenosis of unspecified carotid artery 1 Occurrences starting 01/03/2025 until 02/02/2026 [facility] Comment on above: 1 Occurrences starti ng 01/03/2025 until 02/02/2026 End: 02-13-2026 MR Brain WO contrast MRI BRAIN WO IVCON Radiology Routine Other symptoms and signs involving the nervous system 1 Occurrences starting 01/14/2025 until 02/13/2026 [facility] Work Phone: Comment on above: 1 Occurrences starti ng 01/14/2025 until 02/13/2026 End: 01-05-2026 XR CERV OTHER 4V AP/LAT/FLX/EXT XR CERV OTHER 4V AP/LAT/FLX/EXT Radiology Routine Cervical stenosis of spinal canal 1 Occurrences starting 12/06/2024 until 01/05/2026 [facility] Work Phone: Comment on above: 1 Occurrences starti ng 12/06/2024 until 01/05/2026 Immunizations Immunization Date Immunization Notes Care Provider Fa cility NEGATED: Highlighted row has not occurred!07-21-2021 influenza virus vaccine, unspecified formulation Marciano LO [facility] [place] Payers Date Payer Category Payer Private Health Insurance [id number] 1971 Unknown [id number] 1971 Unknown [id number] 1971 Unknown [id number] 1971 Unknown [id number] 1971 Unknown [id number] 1959 Unknown [id number] Social History Date Type Detail Facility Start: 07-02-2024 End: 01-03-2025 Tobacco smoking status Ex-smoker (finding) [facility] Start: 01-03-2025 End: 01-14-2025 Sex Assigned At Male [facility] End: 04-09-2008 History of tobacco use Current smoker [facility] End: 04-09-2008 History of tobacco use Cigarette Smoker [facility] Start: 08-29-2013 End: 01-14-2025 Alcoholic beverage intake Current drinker of alcohol (finding) [facility] Start: 1970 Sex assigned at Not on file [facility] Start: 01-03-2025 End: 01-14-2025 History of Social function [facility] Start: 03-13-2013 National Score (1-10 0), lower number is lower risk 59 [facility] Functional Status Date Assessment Result Facility 07-02-2024 Functional Status N/A [facility] 08-29-2013 Are you deaf, or do you have serious difficulty hearing No 08/29/2013 8:28 AM IVAT Nayely Dobbs No [facility] 08-29-2013 Are you blind, or do you have serious difficulty seeing, even when wearing glasses No 08/29/2013 8:28 AM EDT Calos SantiagodrewNayely amin [facility] 08-29-2013 Do you have serious difficulty walking or climbing stairs No 08/29/2013 8:28 AM EDT Nayely Dobbs [facility] 08-29-2013 Do you have difficul ty dressing or bathing No 08/29/2013 8:28 AM EDT Calos SantiagodrewNayely amin [facility] 08-29-2013 Because of a physica l, mental, or emotional condition, do you have difficulty doing errands alone such as visiting a physician's office or shopping No 08/29/2013 8:28 AM EDT Calos RajinderNayely amin [facility] Mental Status Date Assessment Result Facility 08-29-2013 Because of a physica l, mental, or emotional condition, do you have serious difficulty concentrating, remembering, or making decisions No 08/29/2013 8:28 AM EDT Calos FelicianoPrernata [facility] Clinical Notes 07-02-2024 to 01-14-2025 Marques Braga MD - 01/14/2025 8:40 AM Kenzie Suarez PA-C - 01/03/2025 9:19 AM Radha Prado PA-C - 12/06/2024 10:12 AM EDSarthak Toussaint P - 12/03/2024 10:54 AM EDT Note Date & Type Note Facility 01-14-2025 Note HNO ID: [id number] Author: MARQUES BRAGA MD Service: ? Author Type: Physician Type: Progress Notes Filed: 01/14/2025 09:23 Note Text: SPINE SURGERY NEW PATIENT PCP: Rashard Hair MD REFERRING PROVIDER: No referring provider defined for this encounter. Medical Decision Making: Problems: Moderate: 2+ stable chronic illnesses Data: Independent interpretation of test from other physician/QHCP Risk: Moderate: Moderate risk from testing/treatment Medical Decision Making Level: 4 - Moderate Assessment/Plan (M50.10) Cervical disc disorder with radiculopathy (primary encounter diagnosis) (R29.818) Other symptoms and signs involving the nervous system 1. Cervical disc disorder with radiculopathy (M50.10) 2. Other symptoms and signs involving the nervous system (R29.818) - MRI of the cervical spine demonstrates mild to moderate disc bulges and congenital canal stenosis; findings are not severe or acute. - Symptoms are intermittent and not associated with significant neurological deficits on exam. - Order MRI of the brain to rule out intracranial causes for leg symptoms. - Conservative management recommended; advised stretching exercises and use of Tylenol or ibuprofen as needed for discomfort. - Discussed that symptoms may resolve spontaneously over approximately 6 months; surgical intervention not indicated at this time. - Follow-up in 6 weeks via virtual visit to review MRI results and reassess symptoms. Patient specific-risk factor flags: Obesity (BMI > 30): Patient's last recorded BMI is > 30 (BMI 34.67 kg/m2). Obesity is associated with higher risk of rodrigo-operative complications for spine surgery patients. Importance of weight loss was discussed with patient and plan for patient to increase exercise and monitor caloric intake to maintain a healthy weight was discussed. Actions Based on the Above Information: Discussed weight management Subjective Chief Complaint: History of Present Illness: Abelino Cagle is a 54-year-old male presenting with sudden onset of left arm and leg numbness and tingling. Abelino reports that a few months ago, he woke up with sudden numbness in his left arm, which has since recurred multiple times. Initially, he attributed the numbness to sleeping on his arm, but later episodes occurred without pressure on the arm. The numbness extends down to his fingers, primarily affecting the middle fingers, and is accompanied by tingling. He also experiences tingling in his left leg, described as a sensation of the leg falling asleep, which extends to the foot. He does not report numbness in the right side, trunk, or face. He notes that the numbness and tingling are intermittent and not present every day. He does not identify specific triggers for these symptoms and does not report any issues with hand function, such as dropping objects or difficulty with fine motor tasks. He does not endorse any vision problems, double vision, or facial numbness. He was not feeling ill when the symptoms began. Recently, he has noticed a crunching sound when turning his neck to the left and a sensation of pressure at the back of his head, described as feeling like somebody's got their hand on the back of my head. He reports stiffness in the neck, which has become more noticeable lately. He has a history of lower back pain but does not report pain radiating down the arms. He has not undergone any spine surgery. 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 He has not had any imaging of the brain. Eyes: (-) visual disturbance, (-) blurry vision, (-) diplopia Neck: (+) neck stiffness, (+) neck pressure, (+) neck crepitus Musculoskeletal: (+) low back pain, (-) arm pain Neurological: (+) left arm paresthesia, (+) left leg paresthesia, (-) trunk numbness, (-) facial numbness, (-) hand weakness Questionnaire Generated HPI Possible Spine-Related Symptoms: Symptom Onset: Symptom Location(s): Symptom Laterality: Aggravating Factors: Alleviating Factors: Non-Surgical Therapies Tried: Prior Spine Surgery(s): Image annotated by patient with symptom distribution: No annotated images are attached to the encounter. IMarques MD , have reviewed the above patient-reported information and have reviewed it with the patient. Major Risk Factors Notable surgical risk factors: Smoking status: Former BMI:34.67 kg/m2. Patient's BMI would meet criteria for obesity given BMI >= 30 Obesity Moderate Risk BMI: 34.67 kg/m2 High: BMI > 40 Moderate: BMI 30-40 Normal: BMI < 30 Diabetes normal High: A1C > 8 Moderate: A1C 7-8 Normal: A1C < 7 Hx of DVT / PE normal High: dx of DVT / PE Normal: no dx of DVT / PE Smoking normal Last Status: Former High: Current smoker Normal: Non smoker Narcotics Use normal High:NarxCare >=300 Moderate: 100-299 Normal: 0-99 Depression Unknown Risk Hi (more content not included)... [facility] 01-14-2025 History of Present illness Narrative Images from the original note were not included. SPINE SURGERY NEW PATIENT PCP: Rashard Hair MD REFERRING PROVIDER: No referring provider defined for this encounter. Medical Decision Making: Problems: Moderate: 2+ stable chronic illnesses Data: Independent interpretation of test from other physician/QHCP Risk: Moderate: Moderate risk from testing/treatment Medical Decision Making Level: 4 - Moderate Assessment/Plan (M50.10) Cervical disc disorder with radiculopathy (primary encounter diagnosis) (R29.818) Other symptoms and signs involving the nervous system 1. Cervical disc disorder with radiculopathy (M50.10) 2. Other symptoms and signs involving the nervous system (R29.818) - MRI of the cervical spine demonstrates mild to moderate disc bulges and congenital canal stenosis; findings are not severe or acute. - Symptoms are intermittent and not associated with significant neurological deficits on exam. - Order MRI of the brain to rule out intracranial causes for leg symptoms. - Conservative management recommended; advised stretching exercises and use of Tylenol or ibuprofen as needed for discomfort. - Discussed that symptoms may resolve spontaneously over approximately 6 months; surgical intervention not indicated at this time. - Follow-up in 6 weeks via virtual visit to review MRI results and reassess symptoms. Patient specific-risk factor flags: Obesity (BMI > 30): Patient's last recorded BMI is > 30 (BMI 34.67 kg/m2). Obesity is associated with higher risk of rodrigo-operative complications for spine surgery patients. Importance of weight loss was discussed with patient and plan for patient to increase exercise and monitor caloric intake to maintain a healthy weight was discussed. Actions Based on the Above Information: Discussed weight management Subjective Chief Complaint: History of Present Illness: Abelino Cagle is a 54-year-old male presenting with sudden onset of left arm and leg numbness and tingling. Abelino reports that a few months ago, he woke up with sudden numbness in his left arm, which has since recurred multiple times. Initially, he attributed the numbness to sleeping on his arm, but later episodes occurred without pressure on the arm. The numbness extends down to his fingers, primarily affecting the middle fingers, and is accompanied by tingling. He also experiences tingling in his left leg, described as a sensation of the leg falling asleep, which extends to the foot. He does not report numbness in the right side, trunk, or face. He notes that the numbness and tingling are intermittent and not present every day. He does not identify specific triggers for these symptoms and does not report any issues with hand function, such as dropping objects or difficulty with fine motor tasks. He does not endorse any vision problems, double vision, or facial numbness. He was not feeling ill when the symptoms began. Recently, he has noticed a crunching sound when turning his neck to the left and a sensation of pressure at the back of his head, described as feeling like somebody's got their hand on the back of my head. He reports stiffness in the neck, which has become more noticeable lately. He has a history of lower back pain but does not report pain radiating down the arms. He has not undergone any spine surgery. 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 He has not had any imaging of the brain. Eyes: (-) visual disturbance, (-) blurry vision, (-) diplopia Neck: (+) neck stiffness, (+) neck pressure, (+) neck crepitus Musculoskeletal: (+) low back pain, (-) arm pain Neurological: (+) left arm paresthesia, (+) left leg paresthesia, (-) trunk numbness, (-) facial numbness, (-) hand weakness Questionnaire Generated HPI Possible Spine-Related Symptoms: Symptom Onset: Symptom Location(s): Symptom Laterality: Aggravating Factors: Alleviating Factors: Non-Surgical Therapies Tried: Prior Spine Surgery(s): Image annotated by patient with symptom distribution: No annotated images are attached to the encounter. IMarques MD , have reviewed the above patient-reported information and have reviewed it with the patient. Major Risk Factors Notable surgical risk factors: Smoking status: Former BMI:34.67 kg/m2. Patient's BMI would meet criteria for obesity given BMI >= 30 Obesity Moderate Risk BMI: 34.67 kg/m2 High: BMI > 40 Moderate: BMI 30-40 Normal: BMI < 30 Diabetes normal High: A1C > 8 Moderate: A1C 7-8 Normal: A1C < 7 Hx of DVT / PE normal High: dx of DVT / PE Normal: no dx of DVT / PE Smoking normal Last Status: Former High: Current smoker Normal: Non smoker Narcotics Use normal High:NarxCare >=300 Moderate: 100-299 Normal: 0-99 Depression Unknown Risk High: PHQ-9 >14 Moderate: PHQ-9 5-14 Normal: PHQ-9 < 5 Data from [facility] Epic on prior therapies: Last PT session: No date on file in last 365 days Last Epidural Steroid Injection: No epidural injection on file for last 365 days Last Spine Surgery: No history of prior spine surgery in search of available [facility] records Objective PHYSICAL EXAM BP 140/90 (BP Site: Left Arm, BP Position: Sitting, BP Cuff Size: Large Adult) Pulse 74 Ht 175.3 cm (5' 9 ) Wt 106.5 kg (234 lb 12.6 oz) SpO2 96% BMI 34.67 kg/m - Neurological: - CNIII/CNIV/CNVI: No diplopia. - CNVII: Symmetric smile. - CNXI: Shoulder shrug intact. - CNXII: Tongue protrusion midline. - Motor: No atrophy or asymmetry. - Strength: - Arms: - Deltoids: Left: 5/5, Right: 5/5 - Biceps: Left: 5/5, Right: 5/5 - Triceps: Left: 5/5, Right: 5/5 - Wrist extensors: Left: 5/5, Right: 5/5 - Wrist flexors: Left: 5/5, Right: 5/5 - Dorsal interossei: Left: 5/5, Right: 5/5 - Lower Extremities: - Hip Flexors: Left: 5/5, Right: 5/5 - Hip Extensors: Left: 5/5, Right: 5/5 - Knee Flexion: Left: 5/5, Right: 5/5 - Knee Extension: Left: 5/5, Right: 5/5 - Ankle Dorsiflexion: Left: 5/5, Right: 5/5 - Ankle Plantarflexion: Left: 5/5, Right: 5/5 - Gait: Normal heel, toe, and tandem walking. Results: Imaging: - (November) MRI Cervical Spine: - Mild disc bulges at C2-C3 and C4-C5. - Congenital canal narrowing with mild neural foraminal narrowing. - No severe spinal cord compression noted. - X-ray Cervical Spine: Unremarkable findings. documented in this encounter [facility] 01-03-2025 Note HNO ID: [id number] Author: KENZIE MATHEWS PA-C Service: ? Author Type: Physician Enroller Type: Progress Notes Filed: 01/03/2025 09:57 Note Text: SPINE SURGERY OUTPATIENT CONSULT This is an in-person visit. SERVICE DATE: 01/03/2025 PCP: Rashard Hair MD REFERRING PROVIDER: No referring provider defined for this encounter. Consult requested for an opinion regarding the evaluation and treatment of cervical myelopathy. My final impression and recommendations will be communicated back to the requesting physician by way of the shared medical record or letter via [place] mail. SUBJECTIVE Abelino Cagle is a 54 year old male CHIEF COMPLAINT: left arm numbness, left leg numbness HISTORY OF PRESENT ILLNESS PRECIPITATING EVENT: None DURATION OF SYMPTOMS: Greater Than 1 Year Abelino Cagle is a 54-year-old male presenting for evaluation of numbness and tingling in the arm and leg. Abelino reports experiencing numbness and tingling in the arm and leg for approximately one month. The symptoms began suddenly without any preceding trauma or falls. Initially, the numbness was localized to the arm and was most noticeable during sleep, leading Abelino to suspect it was due to sleeping position. However, the numbness persisted even when not lying on the arm. Over time, the symptoms have progressed to include tingling that starts in the neck and radiates down the back and leg. Abelino can trace the path of the tingling, which consistently follows the same route. The arm occasionally goes completely numb, but the leg has not experienced full numbness, only tingling. The numbness in the arm initially extended to the fingers but has recently stopped doing so. Abelino does not report any changes in symptoms with different head positions. Abelino also reports a crunching sensation and increased stiffness in the neck, particularly when turning to the left. Abelino does not endorse any difficulty with hand dexterity, such as writing or buttoning a shirt. Additionally, Abelino experiences episodes of lightheadedness a couple of times a day, which occur while standing still and are not associated with changes in position. No workup has been done for these episodes. Abelino has a history of smoking but has since quit. There is no history of diabetes. ACTIVE PROBLEM LIST Tobacco Abuse Chest Pain PAST MEDICAL HISTORY Diagnosis Date Tobacco abuse quit 2007 PAST SURGICAL HISTORY Procedure Laterality Date TONSILLECTOMY HX 2000 FAMILY HISTORY Problem Relation Age of Onset None Mother Social History Tobacco Use Smoking status: Former Current packs/day: 0.00 Types: Cigarettes Quit date: 04/09/2008 Years since quittin.7 Substance Use Topics Alcohol use: Yes Drug use: No ALLERGIES No Known Allergies MEDICATIONS: No prescriptions on file. REVIEW OF SYSTEMS: GENERAL: No weight loss or malaise MUSCULOSKELETAL: see HPI NEURO: No history of headaches, syncope, paralysis, seizures or tremors Patient Entered Questionnaires PROMIS Score Percentiles Percentiles provide an indication of how the patient's score ranks in relation to the general population. Higher percentile rankings indicate better function/quality of life. 50th percentile is the average of the general population and indicates half of respondents had a worse score. Depression Screenin04/09/2013 PHQ-9 Score 0 04/09/2013 PHQ-9 Self-harm Question Question 9 Not at all PHQ-9 Self-Harm (Item 9) response options: 0 Not at all 1 Several days 2 More than half the days 3 Nearly every day PHQ-9 Levels: 0-4 No to mild depression 5-9 Mild depression 10-14 Moderate depression 15-19 Moderately severe depression 20-27 Severe depression OBJECTIVE: PHYSICAL EXAM BP 137/91 Pulse 85 Wt 105 kg (231 lb 7.7 oz) SpO2 98% BMI 34.18 kg/m? GENERAL APPEARANCE: Well nourished, well developed, and no apparent distress. NEURO PSYCH: Patient oriented to person, place, and time. Mood pleasant. Benign affect. VISUAL INSPECTION CERVICAL: WNL THORACIC: WNL LUMBAR: WNL PALPATION: SPINOUS PROCESS: No pain. PARASPINALS: No pain. MUSCLE BULK: Normal and symmetrical in the upper AND lower extremities. MUSCLE TONE: Normal. MOTOR: 5/5 in all muscle groups. SENSORY: Normal sensory exam GAIT: Normal. REFLEXES: +2 to bilateral U/L extremities. LONG TRACT SIGNS: No Hoffmans. STRAIGHT LEG TEST: Contralateral: Negative. L'HERMITTES SIGN: Negative. SPURLING'S TEST: Negative. NEURO TESTS: None DATA REVIEW [facility] and outside records independently reviewed ASSESSMENT/PLAN (M48.02) Spinal stenosis of cervical region (primary encounter diagnosis) (I65.29) Occlusion and stenosis of unspecified carotid artery Seen regarding a 1 month hx of numbness in the left arm. Started at night but has progressed to occurring intermittently throughout the day. Episodes of the entire arm going numb but most commonly in h (more content not included)... [facility] 01-03-2025 History of Present illness Narrative SPINE SURGERY OUTPATIENT CONSULT This is an in-person visit. SERVICE DATE: 01/03/2025 PCP: Rashard Hair MD REFERRING PROVIDER: No referring provider defined for this encounter. Consult requested for an opinion regarding the evaluation and treatment of cervical myelopathy. My final impression and recommendations will be communicated back to the requesting physician by way of the shared medical record or letter via [place] mail. SUBJECTIVE Abelino Cagle is a 54 year old male CHIEF COMPLAINT: left arm numbness, left leg numbness HISTORY OF PRESENT ILLNESS PRECIPITATING EVENT: None DURATION OF SYMPTOMS: Greater Than 1 Year Abelino Cagle is a 54-year-old male presenting for evaluation of numbness and tingling in the arm and leg. Abelino reports experiencing numbness and tingling in the arm and leg for approximately one month. The symptoms began suddenly without any preceding trauma or falls. Initially, the numbness was localized to the arm and was most noticeable during sleep, leading Abelino to suspect it was due to sleeping position. However, the numbness persisted even when not lying on the arm. Over time, the symptoms have progressed to include tingling that starts in the neck and radiates down the back and leg. Abelino can trace the path of the tingling, which consistently follows the same route. The arm occasionally goes completely numb, but the leg has not experienced full numbness, only tingling. The numbness in the arm initially extended to the fingers but has recently stopped doing so. Abelino does not report any changes in symptoms with different head positions. Abelino also reports a crunching sensation and increased stiffness in the neck, particularly when turning to the left. Abelino does not endorse any difficulty with hand dexterity, such as writing or buttoning a shirt. Additionally, Abelino experiences episodes of lightheadedness a couple of times a day, which occur while standing still and are not associated with changes in position. No workup has been done for these episodes. Abelino has a history of smoking but has since quit. There is no history of diabetes.\ ACTIVE PROBLEM LIST Tobacco Abuse Chest Pain PAST MEDICAL HISTORY Diagnosis Date Tobacco abuse quit 2007 PAST SURGICAL HISTORY Procedure Laterality Date TONSILLECTOMY HX 2000 FAMILY HISTORY Problem Relation Age of Onset None Mother Social History Tobacco Use Smoking status: Former Current packs/day: 0.00 Types: Cigarettes Quit date: 04/09/2008 Years since quittin.7 Substance Use Topics Alcohol use: Yes Drug use: No ALLERGIES No Known Allergies MEDICATIONS: No prescriptions on file. REVIEW OF SYSTEMS: GENERAL: No weight loss or malaise MUSCULOSKELETAL: see HPI NEURO: No history of headaches, syncope, paralysis, seizures or tremors Patient Entered Questionnaires PROMIS Score Percentiles Percentiles provide an indication of how the patient's score ranks in relation to the general population. Higher percentile rankings indicate better function/quality of life. 50th percentile is the average of the general population and indicates half of respondents had a worse score. Depression Screenin04/09/2013 PHQ-9 Score 0 04/09/2013 PHQ-9 Self-harm Question Question 9 Not at all PHQ-9 Self-Harm (Item 9) response options: 0 Not at all 1 Several days 2 More than half the days 3 Nearly every day PHQ-9 Levels: 0-4 No to mild depression 5-9 Mild depression 10-14 Moderate depression 15-19 Moderately severe depression 20-27 Severe depression OBJECTIVE: PHYSICAL EXAM BP 137/91 Pulse 85 Wt 105 kg (231 lb 7.7 oz) SpO2 98% BMI 34.18 kg/m GENERAL APPEARANCE: Well nourished, well developed, and no apparent distress. NEURO PSYCH: Patient oriented to person, place, and time. Mood pleasant. Benign affect. VISUAL INSPECTION CERVICAL: WNL THORACIC: WNL LUMBAR: WNL PALPATION: SPINOUS PROCESS: No pain. PARASPINALS: No pain. MUSCLE BULK: Normal and symmetrical in the upper & lower extremities. MUSCLE TONE: Normal. MOTOR: 5/5 in all muscle groups. SENSORY: Normal sensory exam GAIT: Normal. REFLEXES: +2 to bilateral U/L extremities. LONG TRACT SIGNS: No Hoffmans. STRAIGHT LEG TEST: Contralateral: Negative. L'HERMITTES SIGN: Negative. SPURLING'S TEST: Negative. NEURO TESTS: None DATA REVIEW [facility] and outside records independently reviewed ASSESSMENT/PLAN (M48.02) Spinal stenosis of cervical region (primary encounter diagnosis) (I65.29) Occlusion and stenosis of unspecified carotid artery Seen regarding a 1 month hx of numbness in the left arm. Started at night but has progressed to occurring intermittently throughout the day. Episodes of the entire arm going numb but most commonly in her lateral arm to the thumb. No right sided symptoms. He's now experiencing tingling that goes from the neck down the spine into the posterior left leg. Not based on neck position, occurs at random. Neurologically intact on exam. No positive Spurling's or Lhermitte. No UPMN signs. C6-7 mild myelomalacia noted on MRI report. To my eyes this appears to be potential artifact. Moderate central stenosis at C5-6 and C6-7 with left foraminal narrowing. Not an overly impressive MRI but given his subjective symptoms I think it is reasonable to discuss potential surgical intervention. May be a good candidate for an ACDF. CT ordered to further evaluate for OPLL. Given hx of dizzy spells and numbness on the left side of the body I also ordered a brain MRI to rule out MS and other pathologies. Routed to our triage team to help him coordinate an appointment with a surgeon. We discussed myelopathy, red flags and progression in great detail. He will call with any changes. The majority of the visit was spent counseling and/or coordinating care for the patient. Total face to face time was 45 minutes. SIGNATURE: Kenzie Mathews PA-C PATIENT NAME: Abelino Cagle DATE: January 03, 2025 TIME: 9:20 AM PAGER: documented in this encounter [facility] 01-03-2025 Note HNO ID: [id number] Author: AYSHA DOWLING RT(R) Service: ? Author Type: Technologist Type: Progress Notes Filed: 01/03/2025 08:40 Note Text: Radiology Service Progress Note PATIENT NAME: Abelino Cagle DATE OF SERVICE: January 03, 2025 TIME: 8:39 AM PATIENT IDENTITY VERIFICATION COMPLETED USING TWO (2) IDENTIFIERS: Name and Date of confirmed by patient verbally. FALL SCREENING: Has the patient had 2 falls in the last year or 1 fall with injury or currently using an Ambulatory Assistive Device (Walker, Cane, Wheelchair, Crutches, etc.)? No PATIENT GENDER DATA: Assigned male at PATIENT RELEVANT IMPLANT DATA REVIEWED: Not Applicable PATIENT PRESENTS WITH AN IMPLANTABLE OR ATTACHED THERAPEUTIC RECREATION DIRECTOR: No RADIOLOGY DEPARTMENT: General X-ray: Exam(s) Completed: Spine X-Ray(s): Cervical AP / LAT / FLEX-EXT PERIPHERAL IV DATA: Not applicable SIGNED BY: RT Gildardo(R) January 03, 2025 8:39 AM [facility] 12-06-2024 Note HNO ID: [id number] Author: RADHA ROBERTS PA-C Service: ? Author Type: Physician Enroller Type: Progress Notes Filed: 12/06/2024 10:17 Note Text: Per Triage: Abelino Cagle is a 54 year old male that requests evaluation of spine. Per review, they have symptoms of neck pain, tightness. Left arm numbness, tingling BMI: 33 Nonsmoker Request: 1st available Referring provider: Rashard Hair MD Patient out of state: no 2nd opinion: no Prior spine surgery: no CMT: Self home PT Studies (Reports unless indicated) MRI cervical spine report 11/12/24: Moderate C6-7 left paracentral disc herniation. Small moderate C5-6 left parasagittal disc protrusion. Moderate crowding the cord at C5-6 and C6-7. Mild myelomalacia at C6-7 Disposition: Based on triage, recommend patient be scheduled with surgical ARMANDO for eval in person - unsure if patient myelopathic Spine Xrays prior to appt: yes Please make sure patient imaging is available for review Radha Roberts PA-C [facility] 12-06-2024 History of Present illness Narrative Per Triage: Abelino Cagle is a 54 year old male that requests evaluation of spine. Per review, they have symptoms of neck pain, tightness. Left arm numbness, tingling BMI: 33 Nonsmoker Request: 1st available Referring provider: Rashard Hair MD Patient out of state: no 2nd opinion: no Prior spine surgery: no CMT: Self home PT Studies (Reports unless indicated) MRI cervical spine report 11/12/24: Moderate C6-7 left paracentral disc herniation. Small moderate C5-6 left parasagittal disc protrusion. Moderate crowding the cord at C5-6 and C6-7. Mild myelomalacia at C6-7 Disposition: Based on triage, recommend patient be scheduled with surgical ARMANDO for eval in person - unsure if patient myelopathic Spine Xrays prior to appt: yes Please make sure patient imaging is available for review Radha Roberts PA-C Patient name: Abelino Cagle Are you being referred by a [facility] Provider or Pain Management Provider at [facility]? No If answer is YES please schedule directly with surgeon, triage does not need to be completed. Is this a self-referral No If not, who is the Referring Provider Rashard Hair MD Is this a 2nd opinion from another spine surgeon? No Were you offered surgery? No MRI/CT/myelogram within 12 months? Yes If NO , please refer to medical spine or PCP to complete above imaging, triage does not need to be completed If YES, please ask for the name/address of the facility where the MRI/CT/myelogram was completed: [facility] Address: [address] [place] [id number] MRI/CT/myelogram viewable in Epic: No If not, please provide [phone] to fax in imaging reports for review. Also, please inform patient to hand carry imaging disc to appointment. XR (spine) within 12 months: No If YES, please ask for the name/address of the facility where the XR was completed: Dr. Lagos's patients: Have you had previous EMG/Nerve Conduction Study, Ultrasound, or MRI for these same symptoms? If YES, please ask for the name/address of the facility where they were completed: Requested provider (First and Last name): Are you interested in a virtual visit if offered? No 1. Where are you having symptoms related to this visit? Neck pain, Tightness, Crunching sounds Arm numbness Tingling (L) Back pain No Leg pain No Arm pain No Neck pain Yes 2. Are you having any of the following symptoms: Difficulty walking No Numbness Yes Weakness No Trouble using your hands? No 3. What is your height? 5-9 What is your weight? 230 4. Are you a current smoker? No 5. Have you had any injections or physical therapy in the last 12 months? No If YES then please ask for the name/address of the facility where the injections and/or physical therapy was completed Self home PT Have you tried any other kinds of non-surgical treatments in the last 12 months? (For example: NSAIDS, muscle relaxants, analgesics, oral steroids, Chiropractor, Acupuncture): No 6. Are you currently taking daily prescribed narcotic medications for your current symptoms (For example Oxycodone, Hydrocodone, Tramadol, Morphine, Other)? No 7. Have you had previous spinal surgery for this same symptoms? No If YES please ask for the name of facility/address of where the surgery was completed: Additional Comments documented in this encounter [facility] 12-03-2024 Note HNO ID: [id number] Author: ?, ?, ? Service: ? Author Type: ? Type: Progress Notes Filed: 12/06/2024 10:17 Note Text: Patient name: Abelino Cagle Are you being referred by a [place] for Spine Health Provider or Pain Management Provider at [facility]? No If answer is YES please schedule directly with surgeon, triage does not need to be completed. Is this a self-referral No If not, who is the Referring Provider Rashard Hair MD Is this a 2nd opinion from another spine surgeon? No Were you offered surgery? No MRI/CT/myelogram within 12 months? Yes If NO , please refer to medical spine or PCP to complete above imaging, triage does not need to be completed If YES,? please ask for the name/address of the facility where the MRI/CT/myelogram was completed: [facility] Address: [address] [place] [address] MRI/CT/myelogram viewable in Epic: No If not, please provide [phone] to fax in imaging reports for review. Also, please inform patient to hand carry imaging disc to appointment. XR (spine) within 12 months: No If YES,? please ask for the name/address of the facility where the XR was completed: Dr. Lagos's patients: Have you had previous EMG/Nerve Conduction Study, Ultrasound, or MRI for these same symptoms? If YES,? please ask for the name/address of the facility where they were completed: Requested provider (First and Last name): Are you interested in a virtual visit if offered? No 1. Where are you having symptoms related to this visit? Neck pain, Tightness, Crunching sounds Arm numbness Tingling (L) Back pain No Leg pain No Arm pain No Neck pain Yes 2. Are you having any of the following symptoms: Difficulty walking No Numbness Yes Weakness No Trouble using your hands? No 3. What is your height? 5-9 What is your weight? 230 4. Are you a current smoker? No 5. Have you had any injections or physical therapy in the last 12 months? No If YES then please ask for the name/address of the facility where the injections and/or physical therapy was completed Self home PT Have you tried any other kinds of non-surgical treatments in the last 12 months? (For example: NSAIDS, muscle relaxants, analgesics, oral steroids, Chiropractor, Acupuncture): No 6. Are you currently taking daily prescribed narcotic medications for your current symptoms (For example Oxycodone, Hydrocodone, Tramadol, Morphine, Other)? No 7. Have you had previous spinal surgery for this same symptoms? No If YES? please ask for the name of facility/address of where the surgery was completed: Additional Comments [facility] 07-02-2024 Hospital Discharge instructions Patient Education 07/02/2024 [...] treatment? Where to find more information [employer] [employer]: www.cancer.org [employer] [employer]: www.auanet.org Contact a health care [...] provider. Document Revised: 11/16/2021 Document Reviewed: 11/16/2021 [employer] Patient Education 2023 [employer]. Follow Up Care 06/22/2024 13:36:18 With:NEWTON GALVIN, Marciano Friedman, URL Address: [facility] [address] , [place] [address] [phone] When: only if needed [facility] 07-02-2024 Evaluation + Plan note Diagnostic Tests PendingPSA Screen, Total 07/02/24 [facility] 07-02-2024 Note Patient Education Oncology Prostate Cancer [...] Where to find more information ??? [employer] [place] [employer]: www.cancer.org ??? [place] [employer]: www.auanet.org Contact a health care [...] The prostate gland (more content not included)... [facility] Evaluation note Diagnosis Cervical disc disorder- Primary Other and unspecified disc disorder of cervical region [facility] Cervical stenosis of spinal canal- Primary Spinal stenosis in cervical region [facility] Spinal stenosis of cervical region- Primary Spinal stenosis in cervical region Occlusion and stenosis of unspecified carotid artery [facility] Cervical stenosis of spinal canal Spinal stenosis in cervical region [facility] Cervical disc disorder with radiculopathy- Primary Brachial neuritis or radiculitis nos Other symptoms and signs involving the nervous system [facility] Narrative No data available for this section [facility] progress note No data available for this section [facility] reason for visit Narrative* Diagnostic Procedure Only (Routine) - Closed Specialty Diagnoses / Procedures Referred By Elmira ceballos Referred To Contact XR IMAGING Diagnoses Cervical stenosis of spinal canal Procedures XR CERV OTHER 4V AP/LAT/FLX/EXT RADEX SPINE CERVICAL 4 OR 5 VIEWS Radha Roberts PA-C [address] [place] [address] Phone: tel: fax: [place] [id number] Referral ID Status Reason Start Date Expiration Date V isits Requested Visits Authorized [id number] Closed Auto-Generate d Referral 12/06/2024 01/05/2026 1 1 [facility] Summary Purpose Family History No Family History Records FoundNo Family History Records Found No data available for this section No Family History Records FoundNo Family History Records FoundNo Family History Records Found Advance Directives No Advanced Directives Records FoundNo Advanced Directives Records FoundNo Advanced Directives Records FoundNo Advanced Directives Records FoundNo Advanced Directives Records Found Additional Source Comments (unrecognized sect ion and content) No Status Records FoundNo Status Records FoundNo Status Records FoundNo Status Records FoundNo Status Records Found INFORMATION SOURCE (unrecogn ized section and content) DATE CREATED AUTHOR 06/30/2021 [facility] DATE CREATED AUTHOR AUTHOR'S ORGANIZ ATION 11/12/2022 [facility] DATE CREATED AUTHOR AUTHOR'S ORGANIZ ATION 07/12/2024 [facility] DATE CREATED AUTHOR AUTHOR'S ORGANIZ ATION 01/05/2025 [facility] DATE CREATED AUTHOR AUTHOR'S ORGANIZ ATION 01/14/2025 [facility] Patient Care team informatio n (unrecognized section and content) Collection Systems Technician Relationship Specialty Start Date End Date Rashard Hair MD PCP - General Family Medicine 03/13/13 Collection Systems Technician Relationship Specialty Start Date End Date Rashard Hair MD PCP - General Family Medicine 03/13/13 Collection Systems Technician Relationship Specialty Start Date End Date Rashard Hair MD PCP - General Family Medicine 03/13/13 Collection Systems Technician Relationship Specialty Start Date End Date Rashard Hair MD PCP - General Family Medicine 03/13/13 Source Comments (unrecognize d section and content) In the event this informatio n is protected by the Federal Confidentiality of Alcohol and Drug Abuse Patient Records regulations: The Federal rules restrict any use of the information to criminally investigate or prosecute any alcohol or drug abuse patient.[facility] the event this information is protected by the Federal Confidentiality of Alcohol and Drug Abuse Patient Records regulations: The Federal rules restrict any use of the information to criminally investigate or prosecute any alcohol or drug abuse patient.[facility] the event this information is protected by the Federal Confidentiality of Alcohol and Drug Abuse Patient Records regulations: The Federal rules restrict any use of the information to criminally investigate or prosecute any alcohol or drug abuse patient.[facility] the event this information is protected by the Federal Confidentiality of Alcohol and Drug Abuse Patient Records regulations: The Federal rules restrict any use of the information to criminally investigate or prosecute any alcohol or drug abuse patient.[facility] the event this information is protected by the Federal Confidentiality of Alcohol and Drug Abuse Patient Records regulations: The Federal rules restrict any use of the information to criminally investigate or prosecute any alcohol or drug abuse patient.[facility] Reason for Visit (unrecogniz ed section and content) Reason Comments New Patient Neck Pain Reason Comments New Patient Neck Pain FOR RECORDS PERTAINING TO PATIENTS WHO ARE [...] BE BASED ON THE PRIMARY CLINICAL RECORDS. [facility]. provides no warranty or guarantee of the accuracy or completeness of information in this document.
== END 2025-01-21 08:16 | disposition home or self-care (01) ==
PROVIDERS: PCP Family Medicine; Visit Provider Neurological Surgery
DX: R29.818 Other symptoms and signs involving the nervous system (principal)
CPT/HCPCS: 70030; 70551